=== PATIENT | male | born 1955 | race Caucasian/White ===

== ENCOUNTER 2016-03-19 10:44 | Inpatient (IN) | payer OTHER ==
[~2016-03-19] VITALS: Ht 188 cm; Wt 104.1 kg
[2016-03-19 11:07] VITALS: BP 148/80; PULSE 91; RESP 22; TEMP 101.4; O2SAT 94; O2SAT 99
[2016-03-19] MEDS ORDERED: DIVA250T3 PO (11:09)
[2016-03-19] MEDS ORDERED: ASPI81CH CHEW (11:09)
[2016-03-19] MEDS ORDERED: SERT25TA83 PO (11:09)
[2016-03-19] MEDS ORDERED: PRAZ1CAP PO (11:09)
[2016-03-19] MEDS ORDERED: SODIUM CHLOR 0.9% 1000 ML INJ 1,000 ML IV SCH (11:10)
[2016-03-19] MEDS ORDERED: ACETAMINOPHEN 325 MG TAB PO ONE (11:15)
[2016-03-19 11:45] LABS: AUTOMATED NEUTROPHIL # 16.9 TH/MM3 (1.8-7.7); BASOPHIL # 0.1 TH/MM3 (0-0.2); BASOPHIL % 0.3 % (0.0-2.0); EOSINOPHIL % 0.1 % (0.0-4.0); HEMATOCRIT 42.5 % (39.0-51.0); LYMPH % 6.8 % (9.0-44.0); LYMPHOCYTE # 1.4 TH/MM3 (1.0-4.8); MEAN CELL VOLUME 98.2 FL (80.0-100.0); MEAN CORPUSCULAR HEMOGLOBIN 33.9 PG (27.0-34.0); MEAN CORPUSCULAR HGB CONC 34.5 % (32.0-36.0); MONO % 11.6 % (0.0-8.0); NEUT % 81.2 % (16.0-70.0); PLATELET COUNT 240 TH/MM3 (150-450); RED BLOOD COUNT 4.33 MIL/MM3 (4.50-5.90); RED CELL DISTRIBUTION WIDTH 14.3 % (11.6-17.2); WHITE BLOOD COUNT 20.9 TH/MM3 (4.0-11.0)
[2016-03-19 11:48] LABS: HEMO FLAGS AUTO DIFF
--- NOTE | 2016-03-19 11:53 | PD ---
HPI Chief Complaint: Fever Time Seen by Provider: 11:47 Travel History International Travel<30 days: No Contact w/Intl Traveler<30days: No Traveled to known affect area: No History of Present Illness HPI Patient comes in for the emergency department family reports he has been seeing vampires. Patient reports he started seeing the vampires at his house yesterday around noon. Patient states he'll shotguns one vampires head. Patient states when patient lays on the vampires it disappeared. Patient states he last saw them this morning before he left his house. He states vampires were not aggressive. Patient denies any chest pain, shortness of breath, nausea, vomiting, bowel pain, or fevers. Patient states that he has been bit by rats over the past 3 weeks. Patient states that he buys the rats to feed his snakes. Patient reports his tetanus shot is up-to-date. Patient reports the last bite was approximately 2 weeks ago he was treated for this. [facility] Past Medical History Depression: Yes Past Surgical History Other Surgery: Yes (LEFT ANKLE) Social History Alcohol Use: No Tobacco Use: No Allergies-Medications (Allergen,Severity, Reaction): Coded Allergies: Penicillin (Verified Allergy, Severe, 03/19/16) SWELLING Reported Meds & Prescriptions Reported Meds & Active Scripts Active Reported Divalproex ER (Divalproex Sodium) 250 Mg Jackson Unknown Dose PO DAILY Prazosin (Prazosin HCl) 1 Mg Cap Unknown Dose PO BID Sertraline (Sertraline HCl) 25 Mg Tab Unknown Dose PO DAILY Aspirin 81 Mg Chew Unknown Dose CHEW DAILY Review of Systems Except as stated in HPI: all other systems reviewed are Neg Physical Exam Narrative GENERAL: Well-developed, overly nourished, in no acute distress, and non-ill appearing. SKIN: Warm and dry. HEAD: Atraumatic. Normocephalic. EYES: Pupils equal and round. EOMI. No scleral icterus. No injection or drainage. ENT: No nasal bleeding or discharge. Mucous membranes pink and moist. NECK: Trachea midline. Supple. No nuclear rigidity. CARDIOVASCULAR: Regular rate and rhythm. No murmur appreciated. RESPIRATORY: No accessory muscle use. No respiratory distress. Clear to auscultation. Breath sounds equal bilaterally. GASTROINTESTINAL: Abdomen soft, non-tender, nondistended. Hepatic and splenic margins not palpable. Normal bowel sounds 4. No pulsatile mass. MUSCULOSKELETAL: No obvious deformities. No clubbing. No cyanosis. No edema. Full range of motion. NEUROLOGICAL: Awake and alert. No obvious cranial nerve deficits. Motor grossly within normal limits. Normal speech. PSYCHIATRIC: Appropriate mood and affect. Data Data Last Documented VS Vital Signs Date Time Temp Pulse Resp B/P Pulse Ox O2 Delivery O2 Flow Rate FiO2 03/19/16 12:28 99.1 81 16 98 Nasal Cannula 2 03/19/16 11:07 148/80 Orders Complete Blood Count With Diff (03/19/16 11:11) Comprehensive Metabolic Panel (03/19/16 11:11) Iv Access Insert/Monitor (03/19/16 11:11) Oxygen Administration (03/19/16 11:11) Oximetry (03/19/16 11:11) Blood Glucose (03/19/16 11:11) Electrocardiogram (03/19/16 11:10) Lactic Acid Sepsis Protocol (03/19/16 11:10) Lipase (03/19/16 11:10) Urinalysis - C+S If Indicated (03/19/16 11:10) Blood Culture (03/19/16 11:10) Chest, Single Ap (03/19/16 11:10) Acetaminophen (Tylenol) (03/19/16 11:15) Alcohol (Ethanol) (03/19/16 11:10) Ammonia (03/19/16 11:10) Drug Screen, Random Urine (03/19/16 11:10) Sodium Chlor 0.9% 1000 Ml Inj (Ns 1000 M (03/19/16 11:10) Influenzae A/B Antigen (03/19/16 11:31) Valproic Acid (Depakene) (03/19/16 11:18) Sodium Chlor 0.9% 1000 Ml Inj (Ns 1000 M (03/19/16 12:30) Vancomycin Inj (Vancomycin Inj) (03/19/16 12:32) Piperacil-Tazo 4.5 Gm Premix (Zosyn 4.5 (03/19/16 12:32) Ceftriaxone Inj (Rocephin Inj) (03/19/16 13:00) Admit Order (Ed Use Only) (03/19/16 12:51) Labs Laboratory Tests Test 03/19/16 11:18 White Blood Count 20.9 TH/MM3 Red Blood Count 4.33 MIL/MM3 Hemoglobin 14.7 GM/DL Hematocrit 42.5 % Mean Corpuscular Volume 98.2 FL Mean Corpuscular Hemoglobin 33.9 PG Mean Corpuscular Hemoglobin 34.5 % Concent Red Cell Distribution Width 14.3 % Platelet Count 240 TH/MM3 Mean Platelet Volume 9.1 FL Neutrophils (%) (Auto) 81.2 % Lymphocytes (%) (Auto) 6.8 % Monocytes (%) (Auto) 11.6 % Eosinophils (%) (Auto) 0.1 % Basophils (%) (Auto) 0.3 % Neutrophils # (Auto) 16.9 TH/MM3 Lymphocytes # (Auto) 1.4 TH/MM3 Monocytes # (Auto) 2.4 TH/MM3 Eosinophils # (Auto) 0.0 TH/MM3 Basophils # (Auto) 0.1 TH/MM3 CBC Comment AUTO DIFF Differential Comment AUTO DIFF CONFIRMED Sodium Level 139 MEQ/L Potassium Level 3.9 MEQ/L Chloride Level 102 MEQ/L Carbon Dioxide Level 26.4 MEQ/L Anion Gap 11 MEQ/L Blood Urea Nitrogen 17 MG/DL Creatinine 1.03 MG/DL Estimat Glomerular Filtration 74 ML/MIN Rate Random Glucose 126 MG/DL Lactic Acid Level 0.9 mmol/L Calcium Level 8.4 MG/DL Total Bilirubin 0.9 MG/DL Aspartate Amino Transf 81 U/L (AST/SGOT) Alanine Aminotransferase 73 U/L (ALT/SGPT) Alkaline Phosphatase 96 U/L Ammonia 13 MCMOL/L Total Protein 6.5 GM/DL Albumin 2.8 GM/DL Lipase 122 U/L Valproic Acid (Depakene) Level 4 MCG/ML Ethyl Alcohol Level LESS THAN 3 MG/DL MDM Medical Decision Making Medical Screen Exam Complete: Yes Emergency Medical Condition: Yes Interpretation(s) EKG reviewed by Dr. Ordonez, shows normal sinus rhythm with ventricular rate of 88. No STEMI. Differential Diagnosis Sepsis, pneumonia, bacteremia, UTI, delirium, acute psychosis, drug-induced psychosis, other Narrative Course Patient was seen and examined. Initial laboratory and radiological studies were obtained and reviewed with UA currently pending. Discussed patient with Dr. Strong, who saw and evaluated patient and recommends having the patient admitted for further treatment and evaluation. Discussed all findings and plan care of patient is agreeable for admission. All questions were answered. Sepsis Criteria SIRS Criteria (2 or more): Temp > 100.9 or < 96.8, Heart rate over 90, WBC > 75526, < 4000 or > 10% bands Criteria Outcome: Meets SIRS criteria Physician Communication Physician Communication [id number] Summers was called was agreeable to admit the patient for Dr. Mcmahon. Diagnosis Primary Impression: SIRS (systemic inflammatory response syndrome) Additional Impressions: Fever of undetermined origin Delirium Admitting Information Admitting Physician Requests: Admit Condition: Stable Aj Lara Mar 19, 2016 11:53
[2016-03-19 12:21] LABS: ALT (GPT) 73 U/L (12-78); ANION GAP 11 MEQ/L (5-15); AST (GOT) 81 U/L (15-37); BICARBONATE 26.4 MEQ/L (21.0-32.0); BLOOD UREA NITROGEN 17 MG/DL (7-18); CHLORIDE 102 MEQ/L (98-107); GLOMERULAR FILTRATION RATE 74 ML/MIN (>89); POTASSIUM 3.9 MEQ/L (3.5-5.1); SODIUM (NA) 139 MEQ/L (136-145)
[2016-03-19 12:25] LABS: SCAN/DIFF AUTO DIFF CONFIRMED
[2016-03-19 12:26] LABS: ALKALINE PHOSPHATASE 96 U/L (45-117); TOTAL BILIRUBIN ADULT 0.9 MG/DL (0.2-1.0)
[2016-03-19 12:28] VITALS: PULSE 81; RESP 16; TEMP 99.1; O2SAT 98
--- NOTE | 2016-03-19 12:28 | RADRPT ---
EXAM DATE/TIME: 03/19/2016 12:09 [facility] COMPARISON: No previous studies available for comparison. INDICATIONS : Fever, cough, congestion, shortness of breath, syncope after getting bit by a rat two days ago. MEDICAL HISTORY : None. SURGICAL HISTORY : None. ENCOUNTER: Initial ACUITY: 2 days PAIN SCORE: 0/10 LOCATION: Bilateral chest FINDINGS: Portable AP view of the chest demonstrates a normal-sized cardiac silhouette. No effusion, consolidat ion, or pneumothorax is visualized. The bones and soft tissues demonstrate no acute abnormality. CONCLUSION: No acute cardiopulmonary abnormality is identified. Crispin Atwood MD on March 19, 2016 at 12:26 Board Certified Radiologist. This report was verified electronically.
[2016-03-19] MEDS ORDERED: SODIUM CHLOR 0.9% 1000 ML INJ 1,000 ML IV ONE (12:30)
[2016-03-19] MEDS ORDERED: PIPERACIL-TAZO 4.5 GM PREMIX 100 ML IV STA (12:32)
[2016-03-19] MEDS ORDERED: VANCOMYCIN INJ 1,000 MG in SODIUM CHLOR 0.9% 250 ML INJ 250 ML IV STA (12:32)
[2016-03-19] MEDS ORDERED: cefTRIAXone INJ 2,000 MG in SODIUM CHLORIDE 0.9% INJ 100 ML IV ONE (13:00)
--- NOTE | 2016-03-19 13:01 | HHI.HP ---
[facility] Service Family Medicine Primary Care Physician [facility] Admission Diagnosis SIRS, fever, delirium Diagnoses: International Travel<30 Days: No Contact w/Intl Traveler<30days: No Known Affected Area: No History of Present Illness Patient is a 60-year-old male with PMH significant for HTN, HLD, and bipolar who presented here today due to hallucinations. On 03/02/16, pt reports getting bit by a rat on his right left thumb that he purchased for his snake. After that , he developed sweat/chills and vomiting for 3days. This was then followed by 3days of non bloody diarrhea which has now resolved. He reports cleaning the area with hydrogen peroxide and antibacterial soaps. Since then patient reports seeing vampires in his house. He is now sure if he let these people in his house. Describes the vampires as coming in "episodes" in which there are groups of adult and children vampires as well as [place] children. These people are not telling him to do anything. Denies a prior history of hallucinations or requiring hospitalization for his bipolar. Denies prior episodes of hallucinations. He does not believe that these visions are hallucinations currently. Currently not seeing any vampires in the ED room. Denies any chest pain, SOB, abdominal pain, diarrhea. Does endorse a history of syncope that occurs whenever he goes from a sitting to a standing position. Endorses that he gets blurry vision in relation to these episodes. Review of Systems Constitutional: COMPLAINS OF: Fever, Chills, DENIES: Diaphoretic episodes, Dizziness Eyes: COMPLAINS OF: Blurred vision Respiratory: DENIES: Cough, Shortness of breath Cardiovascular: COMPLAINS OF: Syncope, DENIES: Chest pain, Palpitations, Dyspnea on Exertion Gastrointestinal: DENIES: Abdominal pain, Diarrhea, Nausea, Vomiting Musculoskeletal: DENIES: Back pain Integumentary: DENIES: Rash Neurologic: DENIES: Headache, Seizures Psychiatric: COMPLAINS OF: Hallucinations, DENIES: Suicidal Ideation, Homicidal Ideation Past Family Social History Past Medical History Osteoarthritis HTN HLD Depression Bipolar BPH Past Surgical History left ankle x2 with hardware removed hernia repair on left possible surgery from branch going into chest cavity??? Reported Medications Attempted to contact pharmacy to verify dosing of medications but have not been able to Reported Meds & Active Scripts Active Reported Divalproex ER (Divalproex Sodium) 250 Mg Jackson Unknown Dose PO DAILY Prazosin (Prazosin HCl) 1 Mg Cap Unknown Dose PO BID Sertraline (Sertraline HCl) 25 Mg Tab Unknown Dose PO DAILY Aspirin 81 Mg Chew Unknown Dose CHEW DAILY Allergies: Coded Allergies: Penicillin (Verified Allergy, Severe, 03/19/16) SWELLING Family History Mother: dementia Father: of lung cancer? Social History Lives with by himself Alcohol: 3-4 12oz beers on the weekends. Will get the shakes when not drinking. No history of seizure Tobacco: 1 cigar periodically Illicit: marijuana a long time ago. None recently. Otherwise denies illicit drug use Does not want me to contact brother for more medical information Physical Exam Vital Signs Vital Signs Date Time Temp Pulse Resp B/P Pulse Ox O2 Delivery O2 Flow Rate FiO2 03/19/16 12:28 99.1 81 16 98 Nasal Cannula 2 03/19/16 11:31 97 Nasal Cannula 2 03/19/16 11:07 101.4 91 22 148/80 94 Physical Exam GENERAL: This is a well-nourished, well-developed patient, in no apparent distress. SKIN: Healing lesion on right knuckle. EYES: Pupils equal round and reactive. Extraocular motions intact. No scleral icterus. No injection or drainage. ENT: Nose without bleeding, purulent drainage. Throat without erythema, tonsillar hypertrophy or exudate. Uvula midline. Airway patent. NECK: No lymphadenopathy. Supple, nontender, no meningeal signs. CARDIOVASCULAR: Regular rate and rhythm without murmurs, gallops, or rubs. RESPIRATORY: Clear to auscultation. Breath sounds equal bilaterally. No wheezes , rales, or rhonchi. GASTROINTESTINAL: Abdomen soft, non-tender, nondistended. No hepato-splenomegaly , or palpable masses. No guarding. MUSCULOSKELETAL: Extremities without clubbing, cyanosis, or edema. No calf tenderness. NEUROLOGICAL: Awake and alert. Cranial nerves II through XII intact. Motor and sensory grossly within normal limits. Normal speech. Laboratory Laboratory Tests Test 03/19/16 11:18 White Blood Count 20.9 Red Blood Count 4.33 Hemoglobin 14.7 Hematocrit 42.5 Mean Corpuscular Volume 98.2 Mean Corpuscular Hemoglobin 33.9 Mean Corpuscular Hemoglobin 34.5 Concent Red Cell Distribution Width 14.3 Platelet Count 240 Mean Platelet Volume 9.1 Neutrophils (%) (Auto) 81.2 Lymphocytes (%) (Auto) 6.8 Monocytes (%) (Auto) 11.6 Eosinophils (%) (Auto) 0.1 Basophils (%) (Auto) 0.3 Neutrophils # (Auto) 16.9 Lymphocytes # (Auto) 1.4 Monocytes # (Auto) 2.4 Eosinophils # (Auto) 0.0 Basophils # (Auto) 0.1 CBC Comment AUTO DIFF Differential Comment AUTO DIFF CONFIRMED Sodium Level 139 Potassium Level 3.9 Chloride Level 102 Carbon Dioxide Level 26.4 Anion Gap 11 Blood Urea Nitrogen 17 Creatinine 1.03 Estimat Glomerular Filtration 74 Rate Random Glucose 126 Lactic Acid Level 0.9 Calcium Level 8.4 Total Bilirubin 0.9 Aspartate Amino Transf 81 (AST/SGOT) Alanine Aminotransferase 73 (ALT/SGPT) Alkaline Phosphatase 96 Ammonia 13 Total Protein 6.5 Albumin 2.8 Lipase 122 Valproic Acid (Depakene) Level 4 Ethyl Alcohol Level LESS THAN 3 Date/Time Procedure Status Source Growth 03/19/16 11:38 Influenza Types A,B Antigen (SADIE) - Final Complete Nasal Washing NEGATIVE FOR FLU A AND B ANTIGEN.... 03/19/16 11:18 Aerobic Blood Culture Received Blood Peripheral Pending 03/19/16 11:18 Anaerobic Blood Culture Received Blood Peripheral Pending Result Diagram: 03/19/16 1118 03/19/16 1118 Imaging Last Impressions Chest X-Ray 03/19/16 1110 Signed Impressions: Service Date/Time: Saturday, March 19, 2016 12:09 - CONCLUSION: No acute cardiopulmonary abnormality is identified. Crispin Atwood MD Assessment and Plan Assessment and Plan 60-year-old male with PMH significant for HTN, HLD, bipolar. Admitted for SIRS and possible delirium. Code Status Full Discussed Condition With Dr. Ram and Dr. Mcmahon Problem List: (1) SIRS (systemic inflammatory response syndrome) Status: Acute Plan: Meets SIRS criteria based on fever and leukocytosis. History is also very poor as patient is hallucinating but I am unsure if this is due to underlying psychiatric illness versus delirium. There is a history of a rat bite a few weeks ago but site of bite does not look infected. Neurologically patient is intact. Etiology unclear at this time. Will cover with broad- spectrum antibiotics -EKG significant for sinus tachycardia -Leukocytosis present -No lactic acidosis -Ammonia unremarkable -TSH and free T4, UA, UDS pending -Blood cultures pending -Cardiac telemetry -will consider ID consult if symptoms do not improve Imaging: * Head CT negative * CXR: Unremarkable Medications: * Cefepime 2 g q12 (03/19- * Vancomycin (03/19 * Rocephin 1 in the ED (2) Delirium Status: Acute Plan: Etiology unclear, please see plan above -Placed on [facility] protocol as history is unclear (3) Bipolar 1 disorder Status: Acute Plan: Reports a history of bipolar but was unable to clarify medications -Valproic acid level low at 4 -Will hold home medication at this time and reevaluate in the morning -Consider psychiatric consultation (4) Syncope Status: Acute Plan: Reports a history of syncope this is related to orthostatic hypotension/ vasovagal as it occurs mostly when going from sitting to standing position. Head CT unremarkable -Orthostatic vital signs ordered -Cardiac telemetry (5) Nutrition, metabolism, and development symptoms Status: Acute Plan: Diet: Regular Electrolytes: Unremarkable Fluids: NS at 100 DVT prophylaxis: Lovenox GI prophylaxis: Not indicated Chronic conditions: * BPH: prazosin 1mg BID * HTN: Vasotec PRN Physician Certification 2 Midnight Certification Type: Admission for Inpatient Services Order for Inpatient Services The services are ordered in accordance with Medicare regulations or non- Medicare payer requirements, as applicable. In the case of services not specified as inpatient-only, they are appropriately provided as inpatient services in accordance with the 2-midnight benchmark. Estimated LOS (days): 2 days is the estimated time the patient will need to remain in the hospital, assuming treatment plan goals are met and no additional complications. Post-Hospital Plan: Not yet determined Skylar Carter MD R2 Mar 19, 2016 13:01
[2016-03-19] MEDS ORDERED: ACETAMINOPHEN 325 MG TAB PO PRN ×2 (14:00→17:30)
[2016-03-19] MEDS ORDERED: NALOXONE HCL 0.4 MG/ML AMP IV PRN ×2 (14:00→17:30)
[2016-03-19] MEDS ORDERED: SODIUM CHLORIDE 0.9% FLUSH 5 ML FLUSH FLUSH PRN (14:00)
[2016-03-19] MEDS ORDERED: LORazepam 1 MG TAB PO PRN (14:00)
[2016-03-19] MEDS ORDERED: ENALAPRILAT 1.25 MG/ML VIAL IV PRN (14:00)
[2016-03-19] MEDS ORDERED: FLUMAZENIL 0.5 MG/5 ML VIAL IV PUSH PRN (14:00)
[2016-03-19] MEDS ORDERED: LORazepam 2 MG/ML VIAL IV PUSH PRN ×4 (14:00)
[2016-03-19] MEDS ORDERED: LORazepam 2 MG TAB PO PRN (14:00)
[2016-03-19] MEDS ORDERED: ONDANSETRON HCL 4 MG/2 ML VIAL IVP PRN (14:00)
[2016-03-19 14:25] VITALS: BP 130/78; PULSE 79; RESP 16; O2SAT 100
[2016-03-19] MEDS ORDERED: Vancomycin Consult Pharmacy 1 EA OTHER SCH (14:30)
--- NOTE | 2016-03-19 14:31 | RADRPT ---
EXAM DATE/TIME: 03/19/2016 14:16 [facility] COMPARISON: No previous studies available for comparison. INDICATIONS : Hallucinations today,Altered mental status RADIATION DOSE: 56.35 CTDIvol (mGy) MEDICAL HISTORY : None SURGICAL HISTORY : None. ENCOUNTER: Initial ACUITY: 1 day PAIN SCALE: 0/10 LOCATION: cranial TECHNIQUE: Multiple contiguous axial images were obtained of the head. Using automated exposure control and adj ustment of the mA and/or kV according to patient size, radiation dose was kept as low as reasonably a chievable to obtain optimal diagnostic quality images. FINDINGS: CEREBRUM: The ventricles are normal for age. No evidence of midline shift, mass lesion, hemorrhage or acute in farction. No extra-axial fluid collections are seen. POSTERIOR FOSSA: The cerebellum and brainstem are intact. The 4th ventricle is midline. The cerebellopontine angle i s unremarkable. EXTRACRANIAL: The visualized portion of the orbits is intact. SKULL: The calvaria is intact. No evidence of skull fracture. CONCLUSION: 1. No evidence of acute intracranial pathology. No masses are identified. Blake Moreno MD on March 19, 2016 at 14:29 Board Certified Radiologist. This report was verified electronically.
[2016-03-19] MEDS ORDERED: ENOXAPARIN SODIUM 40 MG/0.4 ML SYRINGE SQ SCH (15:00)
[2016-03-19] MEDS: SODIUM CHLOR 0.9% 1000 ML INJ 1,000 ML IV SCH ×2 (15:59→23:47)
[2016-03-19 16:01] VITALS: BP 123/64; PULSE 73; RESP 19; O2SAT 97
--- NOTE | 2016-03-19 16:36 | EKG ---
Date Performed: 03/19/2016 Time Performed: 11:23:55 PTAGE: 60 years EKG: Sinus rhythm POSSIBLE LEFT ATRIAL ENLARGEMENT BORDERLINE LEFT AXIS DEVIATION BORDERLINE ECG NO PREVIOUS TRACING DOCTOR: Joya Singh Interpretating Date/Time 03/19/2016 16:34:09
[2016-03-19 17:29] LABS: FREE T4 1.61 NG/DL (0.76-1.46)
[2016-03-19] MEDS ORDERED: ACETAMINOPHEN/HYDROcodone 325 MG/5 MG TAB PO PRN (17:30)
--- NOTE | 2016-03-19 17:55 | HHI.FPPN ---
Subjective Remarks Attending note: Patient seen and examined. 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 A precise chronologic history was difficult to obtain, however, patient relates that 5 days ago he was bitten on the left and right hand by a rat which was intended to be fed to some snakes that her pet's patient and his girlfriend. At some point he began having constant vomiting, felt dehydrated and was sweating. Because blurred vision and being unsteady on his feet. The duration was 2-3 days. He then felt like he was coming back to life "with some diarrhea that was resolving, however, on 03/18/16, the patient relates that he went to [facility] and was diagnosed with "infection". Given what he thinks was an antibiotic, something for inflammation and something relaxing muscles. Up until the last 24 hours patient relates visual hallucination in his that he describes as [place] gross. There was no auditory component, he can try to flashlight on if the room was dark in the visions would disappear. Patient does have a history of bipolar illness and [facility] team. Has history of hypertension and hyperlipidemia. Notable white blood cell count of 20,900 on presentation, the patient has received vancomycin and cefepime after cultures. A urinalysis was not able to be obtained. He subsequently states that he has given specimen. Please refer to resident history and physical for discussion of details regarding past medical history, family history, social history review of systems. Objective Vitals Vital Signs Date Time Temp Pulse Resp B/P Pulse Ox O2 Delivery O2 Flow Rate FiO2 03/19/16 16:01 73 19 123/64 97 03/19/16 14:25 79 16 130/78 100 03/19/16 12:28 99.1 81 16 98 Nasal Cannula 2 03/19/16 11:31 97 Nasal Cannula 2 03/19/16 11:07 101.4 91 22 148/80 94 Result Diagram: 03/19/16 1118 03/19/16 1118 Objective Remarks Vital signs noted. Temperature currently 99.1. Oxygen saturation stable. Gen. appearance middle-age gentleman who is pleasant conversation, pressed to speak regarding the history of the visual hallucinations. HEENT: Oropharynx no localized lesions. Neck: No adenopathy Lungs: Clear to auscultation. Neck: No unusual murmurs or S3, rhythm is regular. Abdomen: Active bowel sounds soft no organomegaly, no palpable masses, does have some guarding in the right upper abdomen and right lower rib cage anteriorly. Extremities: No rashes evident, feet are warm and dry, intact pedal pulses. Attention to the areas described as being from the rat bites. The left thumb tip has no interest points, the right first MCP has very superficial abrasion type lesion, does not appear to be a puncture wound. Neurologic: Patient is essentially went into to time place and person. A/P Assessment and Plan Clinical assessment patient seen and examined. Case reviewed and discussed with resident team. Agree with the plan of care as discussed with physician and documented in the resident note. 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 Patient may have received some antibiotics from prior visit to an emergency room in [place]. Cultures are pending, empiric antibiotics have been started, etiology of the infection is not clear at this time. Doubt that it is related to the murine exposure Problem List: (1) SIRS (systemic inflammatory response syndrome) Status: Acute Plan: Meets SIRS criteria based on fever and leukocytosis. History is also very poor as patient is hallucinating but I am unsure if this is due to underlying psychiatric illness versus delirium. There is a history of a rat bite a few weeks ago but site of bite does not look infected. Neurologically patient is intact. Etiology unclear at this time. Will cover with broad- spectrum antibiotics -EKG significant for sinus tachycardia -Leukocytosis present -No lactic acidosis -Ammonia unremarkable -TSH and free T4, UA, UDS pending -Blood cultures pending -Cardiac telemetry -will consider ID consult if symptoms do not improve Imaging: * Head CT negative * CXR: Unremarkable Medications: * Cefepime 2 g q12 (03/19- * Vancomycin (03/19 * Rocephin 1 in the ED (2) Delirium Status: Acute Plan: Etiology unclear, please see plan above -Placed on [facility] protocol as history is unclear (3) Bipolar 1 disorder Status: Acute Plan: Reports a history of bipolar but was unable to clarify medications -Valproic acid level low at 4 -Will hold home medication at this time and reevaluate in the morning -Consider psychiatric consultation (4) Syncope Status: Acute Plan: Reports a history of syncope this is related to orthostatic hypotension/ vasovagal as it occurs mostly when going from sitting to standing position. Head CT unremarkable -Orthostatic vital signs ordered -Cardiac telemetry (5) Nutrition, metabolism, and development symptoms Status: Acute Plan: Diet: Regular Electrolytes: Unremarkable Fluids: NS at 100 DVT prophylaxis: Lovenox GI prophylaxis: Not indicated Chronic conditions: * BPH: prazosin 1mg BID * HTN: Vasotec PRN Hubert Mcmahon MD Mar 19, 2016 17:55
[2016-03-19 20:00] VITALS: BP 150/87; PULSE 78; RESP 18; TEMP 99.2; O2SAT 9
[2016-03-19] MEDS: VANCOMYCIN INJ 1,500 MG in SODIUM CHLORID 0.9% 500 ML INJ 500 ML IV SCH (21:00)
[2016-03-19] MEDS: ACETAMINOPHEN/HYDROcodone 325 MG/7.5 MG TAB PO PRN (21:23)
[2016-03-19] MEDS: PRAZOSIN HCL 1 MG CAP PO SCH (21:23)
[2016-03-19] MEDS: CEFEPIME INJ 2,000 MG in SODIUM CHLORIDE 0.9% INJ 100 ML IV SCH (21:24)
[2016-03-19] MEDS: SODIUM CHLORIDE 0.9% FLUSH 5 ML FLUSH FLUSH SCH (21:25)
[2016-03-19] MEDS ORDERED: VANCOMYCIN INJ 1,500 MG in SODIUM CHLORID 0.9% 500 ML INJ 500 ML IV SCH (23:00)
[2016-03-20] VITALS: BP 128/62; PULSE 86; RESP 18; TEMP 98.7; O2SAT 96
[2016-03-20 00:30] LABS: APTT (PATIENT) 39.2 SEC (24.3-30.1); INTERNATIONAL NORMALIZED RATIO 1.2 RATIO; PROTHROMBIN TIME - PATIENT 13.1 SEC (9.8-11.6)
[2016-03-20 04:00] VITALS: BP 142/81; PULSE 82; RESP 18; TEMP 98.8; O2SAT 97
[2016-03-20 06:00] LABS: BACTERIA, URINE RARE /hpf; BLOOD, URINE NEG (NEG); COMMENT (UR) CATH-CULTURE IND; CULTURE IF INDICATED CATH CULTURE IND; GLUCOSE,URINE NEG (NEG); KETONE, URINE NEG (NEG); MUCUS URINE MANY /lpf (OCC); NITRITE,URINE NEG (NEG); PH, URINE 5.5 (5.0-8.5); SQUAMOUS EPITHELIAL CELL URINE <1 /hpf (0-5); URINE COLOR DARK-YELLOW (YELLW/STRAW)
[2016-03-20] MEDS: ACETAMINOPHEN/HYDROcodone 325 MG/7.5 MG TAB PO PRN (06:42)
[2016-03-20 08:00] VITALS: BP 144/75; PULSE 85; RESP 22; TEMP 99.2; O2SAT 95
[2016-03-20] MEDS: PRAZOSIN HCL 1 MG CAP PO SCH (08:09)
[2016-03-20] MEDS: CEFEPIME INJ 2,000 MG in SODIUM CHLORIDE 0.9% INJ 100 ML IV SCH (08:09)
[2016-03-20] MEDS: VANCOMYCIN INJ 1,500 MG in SODIUM CHLORID 0.9% 500 ML INJ 500 ML IV SCH (08:15)
[2016-03-20] MEDS: SODIUM CHLOR 0.9% 1000 ML INJ 1,000 ML IV SCH (08:16)
[2016-03-20] MEDS: SODIUM CHLORIDE 0.9% FLUSH 5 ML FLUSH FLUSH SCH (08:25)
[2016-03-20] MEDS ORDERED: ASPIRIN 81 MG CHEW TAB CHEW SCH (09:00)
[2016-03-20 09:47] LABS: AUTOMATED NEUTROPHIL # 14.7 TH/MM3 (1.8-7.7); BASOPHIL # 0.1 TH/MM3 (0-0.2); BASOPHIL % 0.4 % (0.0-2.0); EOSINOPHIL # 0.1 TH/MM3 (0-0.4); EOSINOPHIL % 0.4 % (0.0-4.0); HEMATOCRIT 40.7 % (39.0-51.0); LYMPH % 8.6 % (9.0-44.0); LYMPHOCYTE # 1.6 TH/MM3 (1.0-4.8); MEAN CELL VOLUME 99.2 FL (80.0-100.0); MEAN CORPUSCULAR HEMOGLOBIN 33.7 PG (27.0-34.0); MONO % 12.6 % (0.0-8.0); PLATELET COUNT 276 TH/MM3 (150-450); RED BLOOD COUNT 4.11 MIL/MM3 (4.50-5.90); RED CELL DISTRIBUTION WIDTH 14.4 % (11.6-17.2); WHITE BLOOD COUNT 18.9 TH/MM3 (4.0-11.0)
[2016-03-20 09:55] LABS: HEMO FLAGS AUTO DIFF
[2016-03-20 10:28] LABS: EOSINOPHILS 1 % (0-4); NEUTROPHIL # MANUAL DIFF 14.2 TH/MM3 (1.8-7.7); PLATELET ESTIMATE SMEAR NORMAL (NORMAL); PLATELET MORPHOLOGY NORMAL (NORMAL); POLYS (SEG NEUTROPHILS) 75 % (16-70); SCAN/DIFF FINAL DIFF MANUAL; WBC DIFF SAMPLE 100
[2016-03-20 10:41] LABS: BICARBONATE 20.3 MEQ/L (21.0-32.0); HDL CHOLESTEROL 21.4 MG/DL (40.0-60.0); POTASSIUM 3.7 MEQ/L (3.5-5.1)
--- NOTE | 2016-03-20 14:05 | PD.AMA ---
Against Medical Advice Note Diagnosis: (1) Bipolar 1 disorder Discharge Disposition: Against Medical Advice Pt Condition on Discharge: Stable AMA Statement Patient Mehrdad Leon has decided to leave the hospital against medical advice. This patient has the capacity to refuse care and understands the risks of leaving, including permanent disability and/or , and has had an opportunity to ask questions about his condition. The patient has been informed that he may return for care at any time. The patient was not suicidal nor homicidal. Patient was seen and examined this morning and counseled extensively about his medical conditions as well as the medications he had or is taking for these medical conditions. The patient later became belligerent and decided to leave against medical advice. Yonas Ram MD R1 Mar 20, 2016 14:05
--- NOTE | 2016-03-20 16:22 | HHI.FPPN ---
Subjective Remarks Delay documentation. Patient seen in the a.m. No acute events overnight. Vital signs unremarkable. This morning patient states that he feels better. Denies any current hallucinations but does believe there are vampire still at his home. Denies any subjective fevers and overall feels better and is able to think more clearly. Denies any fatigue, chest pain, SOB, abdominal pain. He was oriented to year and current president but does not know month or day. (Skylar Carter MD R2) Remarks Patient seen and examined. Case reviewed and discussed with resident team. Agree with plan of care as discussed with physician and documented in the resident note (Hubert Mcmahon MD) Objective Vitals Vital Signs Date Time Temp Pulse Resp B/P Pulse Ox O2 Delivery O2 Flow Rate FiO2 03/20/16 08:00 99.2 85 22 144/75 95 03/20/16 04:00 98.8 82 18 142/81 97 03/20/16 00:00 98.7 86 18 128/62 96 03/19/16 20:00 99.2 78 18 150/87 9 I/O 03/19/16 03/19/16 03/19/16 03/20/16 03/20/16 03/20/16 07:00 15:00 23:00 07:00 15:00 23:00 Intake Total 480 ml Balance 480 ml Intake Oral 480 ml # Voids 1 # Bowel Movements 0 (Skylar Carter MD R2) Result Diagram: 03/20/16 0803/20/16 0826 Objective Remarks GEN: Well-developed, well-nourished patient. No acute distress. Sitting comfortably in bed. CV: Regular rate and rhythm without obvious murmurs LUNGS: Clear to auscultation bilaterally. Normal respiratory effort. No wheezes , rales, rhonchi. GI: Soft, nontender, nondistended. No palpable masses. NEURO/PSYCH: Awake, alert. Oriented to year and current president but not to month or day. Appropriate speech and dialogue (Skylar Carter MD R2) A/P Assessment and Plan 60-year-old male with PMH significant for HTN, HLD, bipolar. Admitted for SIRS and possible delirium. Discharge Planning 1-2 days pending psych evaluation sdw Dr. Ram and Dr. Mcmahon (Skylar Carter MD R2) Assessment and Plan Patient seen and examined. Case reviewed and discussed with resident team. Agree with plan of care as discussed with physician and documented in the resident note (Hubert Mcmahon MD) Problem List: (1) SIRS (systemic inflammatory response syndrome) Status: Resolved Plan: Meets SIRS criteria based on fever and leukocytosis. History is also very poor as patient is hallucinating but I am unsure if this is due to underlying psychiatric illness versus delirium. There is a history of a rat bite a few weeks ago but site of bite does not look infected. Neurologically patient is intact. Etiology unclear at this time. Will cover with broad- spectrum antibiotics -Leukocytosis present but mildly improved -No lactic acidosis -Ammonia, lactic acid, TSH/FT4 unremarkable -UDS ordered but not obtained -Blood cultures negative 1 day -Cardiac telemetry -will consider ID consult if symptoms do not improve Imaging: * Head CT negative * CXR: Unremarkable Medications: * Cefepime 2 g q12 (03/19- * Vancomycin (03/19 * Rocephin 1 in the ED (2) Delirium Status: Acute Plan: Etiology unclear, please see plan above -Placed on [facility] protocol as history is unclear (3) Bipolar 1 disorder Status: Chronic Plan: Reports a history of bipolar but was unable to clarify medications -Valproic acid level low at 4 -Reports taking Sertraline 200mg daily and Divalproex 600mg daily? -Will consult psychiatric (4) Syncope Status: Acute Plan: Reports a history of syncope that is related to orthostatic hypotension/ vasovagal as it occurs mostly when going from sitting to standing position. Head CT unremarkable -Orthostatic vital signs ordered -Cardiac telemetry (5) Nutrition, metabolism, and development symptoms Status: Acute Plan: Diet: Regular Electrolytes: Unremarkable Fluids: NS at 100 DVT prophylaxis: Lovenox GI prophylaxis: Not indicated Chronic conditions: * BPH: prazosin 1mg BID * HTN: Vasotec PRN (Skylar Carter MD R2) Skylar Carter MD R2 Mar 20, 2016 16:22 Hubert Mcmahon MD Mar 21, 2016 10:46
--- NOTE | 2016-03-20 16:28 | PD.AMA ---
Against Medical Advice Note Discharge Disposition: Against Medical Advice Pt Condition on Discharge: Stable AMA Statement Shortly after being evaluated by the medical team, received page stating that patient had signed out AMA and that his girlfriend was coming to pick him up. This patient has the capacity to refuse care and understands the risks of leaving, including permanent disability and/or , and has had an opportunity to ask questions about his condition. Will accept patient back if he is to return for care. dw Dr. Mcmahon and Skylar Aden MD R2 Mar 20, 2016 16:28
[2016-03-21] MEDS ORDERED: PHARMACY ORDERED LAB XX ONE (08:45)
[2016-03-21 11:20] LABS: AMPHETAMINE, URINE NEG (NEG); BARBITURATES, URINE NEG (NEG); COCAINE, URINE NEG (NEG)
[2016-03-21] MEDS ORDERED: LORazepam 2 MG/ML VIAL IM PRN (18:00)
[2016-03-21] MEDS ORDERED: LORazepam 1 MG TAB PO PRN (18:00)
[2016-03-21] MEDS ORDERED: MAGNESIUM HYDROXIDE SUSP 30 ML CUP PO PRN (18:00)
[2016-03-21] MEDS ORDERED: ALUMINUM/MAGNESIUM/SIMETH 30 ML CUP PO PRN (18:00)
[2016-03-21 20:25] VITALS: BP 154/84; PULSE 83; RESP 16; TEMP 98.6; O2SAT 96
[2016-03-21] MEDS: REMOVE OLD NICOTINE PATCH T-DERMAL SCH (21:00)
[2016-03-21 22:32] LABS: HEMOGLOBIN A1a 2.1 %; HEMOGLOBIN A1b 0.8 %; HEMOGLOBIN Ao 85.6 %; HEMOGLOBIN F 0.8 %; HEMOGLOBIN LA1C 1.8 %; HEMOGLOBIN P3 3.3 %
[2016-03-21 23:18] VITALS: BP 158/82; PULSE 79; RESP 15; TEMP 98.3; O2SAT 96
[2016-03-22 04:18] VITALS: BP 134/90; PULSE 67; RESP 16; TEMP 98.6; O2SAT 98
[2016-03-22 05:54] LABS: AUTOMATED NEUTROPHIL # 6.5 TH/MM3 (1.8-7.7); BASOPHIL # 0.1 TH/MM3 (0-0.2); BASOPHIL % 0.5 % (0.0-2.0); EOSINOPHIL # 0.2 TH/MM3 (0-0.4); EOSINOPHIL % 1.6 % (0.0-4.0); LYMPH % 22.3 % (9.0-44.0); LYMPHOCYTE # 2.3 TH/MM3 (1.0-4.8); MEAN CELL VOLUME 98.6 FL (80.0-100.0); MEAN CORPUSCULAR HEMOGLOBIN 34.5 PG (27.0-34.0); MONO % 13.9 % (0.0-8.0); NEUT % 61.7 % (16.0-70.0); PLATELET COUNT 270 TH/MM3 (150-450); RED BLOOD COUNT 3.65 MIL/MM3 (4.50-5.90); RED CELL DISTRIBUTION WIDTH 14.1 % (11.6-17.2); WHITE BLOOD COUNT 10.5 TH/MM3 (4.0-11.0)
[2016-03-22 05:59] LABS: HEMO FLAGS AUTO DIFF
[2016-03-22 06:06] LABS: APTT (PATIENT) 29.8 SEC (24.3-30.1); INTERNATIONAL NORMALIZED RATIO 1.1 RATIO; PROTHROMBIN TIME - PATIENT 12.1 SEC (9.8-11.6)
[2016-03-22 06:20] LABS: ALT (GPT) 154 U/L (12-78); ANION GAP 6 MEQ/L (5-15); AST (GOT) 149 U/L (15-37); BICARBONATE 25.7 MEQ/L (21.0-32.0); BLOOD UREA NITROGEN 14 MG/DL (7-18); CHLORIDE 109 MEQ/L (98-107); GLOMERULAR FILTRATION RATE 94 ML/MIN (>89); POTASSIUM 3.9 MEQ/L (3.5-5.1); SODIUM (NA) 141 MEQ/L (136-145)
[2016-03-22 06:25] LABS: ALKALINE PHOSPHATASE 79 U/L (45-117); HDL CHOLESTEROL 22.5 MG/DL (40.0-60.0); LDL CHOLESTEROL 94 MG/DL (0-99); TOTAL BILIRUBIN ADULT 0.6 MG/DL (0.2-1.0)
[2016-03-22 07:54] LABS: BANDS 3 % (0-6); EOSINOPHILS 1 % (0-4); METAMYELOCYTES 2 % (0-1); MYELOCYTES 1 % (0-0); NEUTROPHIL # MANUAL DIFF 8.2 TH/MM3 (1.8-7.7); POLYS (SEG NEUTROPHILS) 72 % (16-70); WBC DIFF SAMPLE 100
[2016-03-22 07:56] LABS: PLATELET ESTIMATE SMEAR NORMAL (NORMAL); PLATELET MORPHOLOGY NORMAL (NORMAL)
[2016-03-22 07:57] LABS: SCAN/DIFF FINAL DIFF MANUAL
[2016-03-22] MEDS: NICOTINE 21 MG/24 HR PATCH T-DERMAL SCH (09:00)
[2016-03-22] MEDS ORDERED: CEFEPIME 2000 MG/NS 100 ML IV SCH ×2 (10:00)
--- NOTE | 2016-03-22 10:28 | HHI.HP ---
Provisional Diagnosis Admission Date Mar 21, 2016 at 16:14 [place] I. Unspecified psychosis, r/o Schizoaffective disorder, r/o medical induced psychosis [place] II. Deferred Certification of Person's Competence To Provide Express and Informed Consent I have personally examined Mehrdad Leon , a person being served at [facility] on, Mar 22, 2016 10:21. Express and informed consent means consent voluntarily given in writing, by a competent person, after sufficient explanation and disclosure of the subject matter involved to enable the person to make a knowing and willful decision without any element of force, fraud, deceit, duress, or other form of constraint or coercion. This person is 18 years of age or older, is not now known to be incompetent to consent to treatment with a guardian advocate, and does not have a health care surrogate or proxy currently making medical treatment decisions. I have found this person to be one of the following: [] Competent to provide express and informed consent, as defined above, for voluntary admission to this facility and is competent to provide express and informed consent for treatment. He/she has the consistent capacity to make well reasoned, willful, and knowing decisions concerning his or her medical or mental health treatment. The person fully and consistently understands the purpose of the admission for examination/placement and is fully capable of personally exercising all rights assured under [place] [] Incompetent to provide express and informed consent to voluntary admission, and this is incompetent to provide express and informed consent to treatment. The person must be transferred to involuntary status and a petition for a guardian advocate filed with the Circuit Court. [X] Refusing to provide express and informed consent to voluntary admission but is competent to provide express and informed consent for treatment. The person must be discharged or transferred to involuntary status. Form shall be completed within 24 hours of a person's arrival at the receiving facility and filed in the clinical record of each person: 1. Admitted on a voluntary basis 2. Permitted to provide express and informed consent to his/her own treatment 3. Allowed to transfer from involuntary to voluntary status 4. Prior to permitting a person to consent to his or her own treatment after having been previously found incompetent to consent to treatment. History of Present Illness Capacity: Has Capacity HPI My assessment yesterday: "The patient is a 60-year-old man, domiciled alone in [place], [place] service [place], with a self-reported psychiatric history of bipolar disorder , no psychiatric hospitalizations, no previous suicide attempts, receiving outpatient psychiatric care in [place], he isn't Depakote 250 mg twice a day, and Zoloft 25 mg, past medical history significant for hypertension, bipolar disorder, BPH who left [facility] yesterday, currently admitted under the Crowell Act due to erratic behavior. "Patient was admitted due to sepsis, delirium, syncope. He is unable to explain why he left AMA. After leaving the hospital he was found experiencing hallucinations and responding to external stimuli. Patient was brought to the ED by police. Patient was also noted to have an open wound on his right elbow that was not previously documented. He is unable to account for how this injury occurred or how long it has been present. Patient is unable to answer questions directly and provides no additional relevant history."Patient was seen for psychiatric evaluation in the ER, patient explains that the reason he is in the hospital is because a rat bit him. He explains that he has been feeding his snakes at home and when he was giving a rat to the snakes one of the rats bit him. He also complains that there are several vampires hanging out of his house "in a need to protect myself , if they come close to my house I will shoot them", patient refuses to answer it he has a gun at home. He says that he has been seen vampires around him, "sometime inside my house, they couldn't even be here"for a long time now. Patient also reports auditory hallucination, voices telling him to fight against the vampires. He reports good mood, denies depressive symptoms, he denies anxiety. Patient is tangential and disorganized, but redirectable, he is oriented 3, he does not seem to be confused or delirium. No pressure speech , flight of ideas, are noted during this evaluation. Patient denies the use of illicit drugs, he also denies the use of alcohol. Patient explains that he has been "a psychiatric patient for a long time"and he sees a psychiatrist in [place], however he seems to have a hard time answering if he has been hospitalized and what medication his taking." Today 03/22/2016: Patient was seen for psychiatric evaluation, he seems to be comfortable in his bed, eating his breakfast, he is calm and cooperative, patient says that he feels much better than yesterday, he denies distress, he denies pain, he says that his nausea and vomiting is already cured, he endorses good mood, he explains that he is a little concerned "because nobody is taking care of my snakes at home", he clarifies that he has two snakes as pets. He denies suicidal and homicidal ideation, he denies visual and auditory hallucinations. He says that he is no seen vampires anymore "it happened yesterday I don't know why, is the first time that happened to me, I was also very confused", patient is fully oriented 3, no attention deficit, fluctuation of consciousness are present. No paranoia, delusions, aggressive behavior or agitation observed during visible. Review of Systems Other No significant changes since my assessment in 03/21/2016 Substance Abuse History Drugs/Alcohol past 12 months He denies the use of drugs and alcohol Past Family Social History Coded Allergies: Penicillin (Verified Allergy, Severe, 03/19/16) SWELLING Reported Medications Divalproex ER 250 Mg TaberUnknown Dose PO DAILY #30 TAB Ref 0 03/19/16 Prazosin 1 Mg CapUnknown Dose PO BID #60 CAP Ref 0 03/19/16 Sertraline 25 Mg TabUnknown Dose PO DAILY #30 TAB Ref 0 03/19/16 Aspirin 81 Mg ChewUnknown Dose CHEW DAILY Ref 0 03/19/16 Current Medications Medications (Trade) Dose Ordered Sig/Cyndi Route Start Time Stop Time Status Last Admin (Vancomycin Consult Pharmacy) 0 ml @ 0 mls/hr UNSCH OTHER 03/19/16 14:30 (Ativan) 1 mg Q6H PRN PO 03/21/16 18:00 (Ativan Inj) 1 mg Q6H PRN IM 03/21/16 18:00 (Tylenol) 650 mg Q4H PRN PO 03/21/16 18:00 (Milk Of Magnesia Liq) 30 ml DAILY PRN PO 03/21/16 18:00 (Mag-Al Plus Susp Liq) 30 ml Q6H PRN PO 03/21/16 18:00 (Habitrol 21 Mg Patch.24 Hr) 1 patch DAILY T-DERMAL 03/22/16 09:00 Miscellaneous Information 1 1 HS T-DERMAL 03/21/16 21:00 (Vancomycin Inj/ NS 500 ml Inj) 515 ml @ 250 mls/hr Q12H IV 03/22/16 11:00 Miscellaneous Information SPECIFIC LAB TO BE .. ONCE ONCE XX 03/22/16 10:45 03/22/16 10:46 (Maxipime Inj/NS Inj) 100 ml @ 200 mls/hr Q12H IV 03/22/16 10:00 03/22/16 09:43 Family History He denies Social History Patient was born and raised in [place], he has been living in [place] for 3 years, he lives alone in [place], his eyeballs, he has 3 kids, he is a , he is 100% service connected, his highest level of education is an associate degree Physical Exam Vital Signs Vital Signs Date Time Temp Pulse Resp B/P Pulse Ox O2 Delivery O2 Flow Rate FiO2 03/22/16 04:18 98.6 67 16 134/90 98 03/19/16 12:28 Nasal Cannula 2 I/O 03/21/16 03/21/16 03/22/16 08:00 16:00 00:00 Intake Total 240 ml Balance 240 ml Mental Status Examination Speech: Unremarkable Orientation: x3 Memory: Unremarkable Thought Process: Logical Thought Content: Unremarkable Hallucination Type: None Suicidal Ideation: No Homicidal Ideation: No Previous Homicide Attempts: No Judgement: WNL Affect: Good Mood: Appropriate Assessment & Plan Problem List: (1) Chronic schizoaffective disorder with acute exacerbation Assessment & Plan: On psychiatric evaluation patient presents evidence psychosis consistent the delusions of being followed by vampires, visual and auditory hallucinations, paranoia, tangential and disorganized. Patient denies depressive symptoms, he denies anxiety, no manic symptoms are observed or reported at this moment. He denies suicidal or homicidal ideation. Patient is fully oriented in 3, no deficit in attention, fluctuation of consciousness, delirium or gross cognitive impairment observed at this moment. Agree with neurology and neurosurgical consult in order to evaluate meningioma seen in Brain CT. At this point is unclear if the cause of current psychosis is primary psychiatric vs medical vs neurological. But, patient will benefit of psychiatric hospitalization for stabilization and safety. Collateral information from psychiatrist in [facility] is crucial in order to get patient baseline and complete psychiatric assessment. We'll start Risperdal 1 mg twice a day, and we will restart Depakote 500 mg twice a day. ICD Code: F25.8 Assessment & Plan Estimated LOS: Felipe Benítez MD Mar 22, 2016 10:27
[2016-03-22] MEDS: DIVALPROEX SODIUM E.R. 500 MG TAB PO SCH ×2 (10:30→21:00)
[2016-03-22] MEDS: risperiDONE 1 MG TAB PO SCH ×2 (10:30→21:43)
[2016-03-22 10:31] VITALS: O2SAT 96
[2016-03-22] MEDS ORDERED: PHARMACY ORDERED LAB XX ONE (10:45)
--- NOTE | 2016-03-22 10:48 | HHI.FPPN ---
Subjective Remarks No acute events overnight. Afebrile, vitals are stable. Appears comfortable this morning. Denies any AVH, SI/HI. Alert and oriented fully. Denies headaches , visual symptoms, chest pain, palpitations, SOB, pain anywhere. Does not have any concerns. (Yonas Ram MD R1) Objective Vitals Vital Signs Date Time Temp Pulse Resp B/P Pulse Ox O2 Delivery O2 Flow Rate FiO2 03/22/16 10:31 96 21 03/22/16 04:18 98.6 67 16 134/90 98 03/21/16 23:18 98.3 79 15 158/82 96 03/21/16 20:25 98.6 83 16 154/84 96 I/O 03/21/16 03/21/16 03/21/16 03/22/16 03/22/16 03/22/16 07:00 15:00 23:00 07:00 15:00 23:00 Intake Total 240 ml Balance 240 ml Intake Oral 240 ml # Voids 2 # Bowel Movements 0 (Yonas Ram MD R1) Result Diagram: 03/20/16 0826 03/20/16 0826 Objective Remarks GEN: NAD CV: Regular rate and rhythm without obvious murmurs LUNGS: Clear to auscultation bilaterally. Normal respiratory effort. No wheezes , rales, rhonchi. GI: Soft, nontender, nondistended. No palpable masses. NEURO/PSYCH: Awake, alert. Oriented x 3. Appropriate speech and dialogue ( Yonas Ram MD R1) A/P Assessment and Plan 60-year-old male with past medical history significant for hypertension, bipolar disorder, BPH admitted due to SIRS, altered mental status , Head CT significant for 1.6cm meningioma that was not seen on prior CT from . Discharge Planning Psychiatry recommending psychiatric hospitalization for stability and safety at this time. sdw Dr. Mcmahon (Yonas Ram MD R1) Assessment and Plan Attending note: Patient seen and examined. Case reviewed and discussed with resident team. Agree with plan of care as discussed with physician and documented in the resident note. (Hubert Mcmahon MD) Problem List: (1) SIRS (systemic inflammatory response syndrome) Status: Resolved Plan: Meets SIRS criteria based on fever and leukocytosis. History is also very poor as patient is hallucinating but I am unsure if this is due to underlying psychiatric illness versus delirium. There is a history of a rat bite a few weeks ago but site of bite does not look infected. Neurologically patient is intact. Etiology unclear at this time. Will consider discontinuing broad-spectrum antibiotics -Leukocytosis resolved -No lactic acidosis -Ammonia, lactic acid, TSH/FT4 unremarkable -UDS positive for cocaine -Blood cultures negative 1 day -Cardiac telemetry Imaging: * Head CT negative: 1.6 cm left hemisphere high isodense rounded appearance of soft tissue density abutting the calvarium which could represent a non- calcified meningioma * Brain MRI: Enhancing estra-axial mass characteristic of a meningioma. No significant mass effect and no edema. No evidence of hemorrhage or infarction. * CXR: Unremarkable Medications: * Cefepime 2 g q12 (03/19- * Vancomycin (03/19 * Rocephin 1 in the ED (2) Bipolar 1 disorder Status: Chronic Plan: Reports a history of bipolar but was unable to clarify medications -Valproic acid level low at 4 -Reports taking Sertraline 200mg daily and Divalproex 600mg daily? -Will consult psychiatry, appreciation recommendations * Depakote 500 mg po bid * Risperdal 1 mg po q12h (3) Syncope Status: Acute Plan: Reports a history of syncope that is related to orthostatic hypotension as it occurs mostly when going from sitting to standing position -Orthostatic vital signs ordered -Cardiac telemetry (4) Nutrition, metabolism, and development symptoms Status: Acute Plan: Diet: Regular Electrolytes: Unremarkable Fluids: None DVT prophylaxis: Lovenox GI prophylaxis: Not indicated Chronic conditions: * BPH: prazosin 1mg BID * HTN: Vasotec PRN (Yonas Ram MD R1) Yonas Ram MD R1 Mar 22, 2016 10:48 Hubert Mcmahon MD Mar 22, 2016 18:08
[2016-03-22] MEDS ORDERED: ENALAPRILAT 2.5 MG/2 ML VIAL IV PUSH PRN (11:00)
[2016-03-22] MEDS ORDERED: VANCOMYCIN INJ 1,500 MG in SODIUM CHLORID 0.9% 500 ML INJ 500 ML IV SCH (11:00)
[2016-03-22 12:15] LABS: BICARBONATE 26.2 MEQ/L (21.0-32.0); HDL CHOLESTEROL 21.6 MG/DL (40.0-60.0); POTASSIUM 4.1 MEQ/L (3.5-5.1)
[2016-03-22 13:00] VITALS: BP_SYST 136; BP_SYST 139; BP_SYST 141; BP_DIAS 77; BP_DIAS 78; BP_DIAS 81; PULSE 75; RESP 18; TEMP 98.4; O2SAT 99
[2016-03-22] MEDS ORDERED: Vancomycin Consult Pharmacy 1 EA OTHER SCH (14:00)
[2016-03-22 16:00] VITALS: BP_SYST 155; BP_SYST 159; BP_DIAS 80; BP_DIAS 99; PULSE 82; RESP 18; TEMP 98.5; O2SAT 98
[2016-03-22 17:08] VITALS: BP_SYST 155; BP_SYST 158; BP_SYST 159; BP_DIAS 80; BP_DIAS 86; BP_DIAS 99; PULSE 82; RESP 18; TEMP 98.5; O2SAT 98
--- NOTE | 2016-03-22 20:11 | HHI.PR ---
Review/Management Diagnosis left parietal meningioma left hemisphere seizure focus Plan continue [facility] Diagnosis/Plan: Subjective Subjective Comments No acute events reported No seizures noted Active Medications Current Medications Medications (Trade) Dose Ordered Sig/Cyndi Route Start Time Stop Time Status Last Admin (Ativan) 1 mg Q6H PRN PO 03/21/16 18:00 (Ativan Inj) 1 mg Q6H PRN IM 03/21/16 18:00 (Tylenol) 650 mg Q4H PRN PO 03/21/16 18:00 (Milk Of Magnesia Liq) 30 ml DAILY PRN PO 03/21/16 18:00 (Mag-Al Plus Susp Liq) 30 ml Q6H PRN PO 03/21/16 18:00 (Habitrol 21 Mg Patch.24 Hr) 1 patch DAILY T-DERMAL 03/22/16 09:00 Miscellaneous Information 1 HS T-DERMAL 03/21/16 21:00 (Depakote Er) 500 mg BID PO 03/22/16 10:30 (risperDAL) 1 mg Q12HR PO 03/22/16 10:30 (Minipress) 1 mg Q12HR PO 03/22/16 21:00 (Vasotec Inj) 2.5 mg Q6H PRN IV PUSH 03/22/16 11:00 Allergies Allergies Coded Allergies Penicillin (Verified Allergy, Severe, 03/19/16) Exam I&O / VS 03/21/16 03/21/16 03/22/16 15:00 23:00 07:00 Intake Total 240 ml Balance 240 ml Intake Oral 240 ml # Voids 2 # Bowel Movements 0 Vital Signs Date Time Temp Pulse Resp B/P Pulse Ox O2 Delivery O2 Flow Rate FiO2 03/22/16 17:08 98.5 82 18 155/80 98 159/99 158/86 03/22/16 13:00 98.4 75 18 141/78 99 139/81 136/77 03/22/16 10:31 96 21 03/22/16 04:18 98.6 67 16 134/90 98 03/21/16 23:18 98.3 79 15 158/82 96 03/21/16 20:25 98.6 83 16 154/84 96 Exam Comments alert, follows simple commands CN 2-12 normal Motor 5/5 bue and ble Objective Micro and Labs Laboratory Tests Test 03/21/16 03/22/16 03/22/16 21:50 05:09 11:25 Hemoglobin A1c 5.2 White Blood Count 10.5 Red Blood Count 3.65 Hemoglobin 12.6 Hematocrit 36.0 Mean Corpuscular Volume 98.6 Mean Corpuscular Hemoglobin 34.5 Mean Corpuscular Hemoglobin 35.0 Concent Red Cell Distribution Width 14.1 Platelet Count 270 Mean Platelet Volume 8.4 Neutrophils (%) (Auto) 61.7 Lymphocytes (%) (Auto) 22.3 Monocytes (%) (Auto) 13.9 Eosinophils (%) (Auto) 1.6 Basophils (%) (Auto) 0.5 Neutrophils # (Auto) 6.5 Lymphocytes # (Auto) 2.3 Monocytes # (Auto) 1.5 Eosinophils # (Auto) 0.2 Basophils # (Auto) 0.1 CBC Comment AUTO DIFF Differential Total Cells 100 Counted Neutrophils % (Manual) 72 Band Neutrophils % 3 Lymphocytes % 12 Monocytes % 9 Eosinophils % 1 Neutrophils # (Manual) 8.2 Metamyelocytes 2 Myelocytes 1 Differential Comment FINAL DIFF MANUAL Atypical Lymphocytes Platelet Estimate NORMAL Platelet Morphology Comment NORMAL Prothrombin Time 12.1 Prothromb Time International 1.1 Ratio Activated Partial 29.8 Thromboplast Time Sodium Level 141 140 Potassium Level 3.9 4.1 Chloride Level 109 107 Carbon Dioxide Level 25.7 26.2 Anion Gap 6 7 Blood Urea Nitrogen 14 13 Creatinine 0.84 0.98 Estimat Glomerular Filtration 94 78 Rate Random Glucose 96 98 Calcium Level 8.0 8.1 Total Bilirubin 0.6 Aspartate Amino Transf 149 (AST/SGOT) Alanine Aminotransferase 154 (ALT/SGPT) Alkaline Phosphatase 79 Total Protein 5.4 Albumin 2.3 Triglycerides Level 90 106 Cholesterol Level 134 150 LDL Cholesterol 94 107 HDL Cholesterol 22.5 21.6 Cholesterol/HDL Ratio 5.95 6.94 Vancomycin Level Trough 14.8 Date/Time Procedure Status Source Growth 03/20/16 05:30 Urine Culture - Final Complete Urine Catheterized Urine NO GROWTH IN 48 HOURS. 03/19/16 11:38 Influenza Types A,B Antigen (SADIE) - Final Complete Nasal Washing NEGATIVE FOR FLU A AND B ANTIGEN.... 03/19/16 11:18 Aerobic Blood Culture - Preliminary Resulted Blood Peripheral NO GROWTH IN 3 DAYS 03/19/16 11:18 Anaerobic Blood Culture - Preliminary Resulted Blood Peripheral NO GROWTH IN 3 DAYS Saurav Del Valle PhD Mar 22, 2016 20:11
[2016-03-22] MEDS ORDERED: PILL SPLITTER OTHER PRN (20:30)
[2016-03-22 20:57] VITALS: BP 145/80; PULSE 81; RESP 16; TEMP 97.9; O2SAT 97
[2016-03-22] MEDS: PRAZOSIN HCL 1 MG CAP PO SCH (21:00)
[2016-03-22] MEDS: REMOVE OLD NICOTINE PATCH T-DERMAL SCH (21:00)
[2016-03-22] MEDS: levETIRAcetam 250 MG TAB PO SCH (21:43)
[2016-03-23] VITALS: BP 140/68; PULSE 75; RESP 14; TEMP 98.4; O2SAT 94
[2016-03-23 06:09] VITALS: BP 145/86; PULSE 71; RESP 14; TEMP 98.7; O2SAT 95
[2016-03-23 07:16] VITALS: O2SAT 94
--- NOTE | 2016-03-23 08:54 | HHI.FPPN ---
Subjective Remarks No events overnight. Afebrile, BPs ranging 130s-150s/60s-90s over past 24 hours. Patient appears comfortable this morning. Denies auditory or visual hallucinations. Denies SI/HI. He is without complaints or concerns. Denies headaches, visual changes, chest pain, SOB, pain or swelling of lower extremities. (oYnas Ram MD R1) Objective Vitals Vital Signs Date Time Temp Pulse Resp B/P Pulse Ox O2 Delivery O2 Flow Rate FiO2 03/23/16 07:16 94 21 03/23/16 06:09 98.7 71 14 145/86 95 03/23/16 00:00 98.4 75 14 140/68 94 03/22/16 22:25 21 03/22/16 20:57 97.9 81 16 145/80 97 03/22/16 17:08 98.5 82 18 155/80 98 159/99 158/86 03/22/16 16:00 98.5 82 18 155/80 98 159/99 03/22/16 13:00 98.4 75 18 141/78 99 139/81 136/77 03/22/16 10:31 96 21 I/O 03/22/16 03/22/16 03/22/16 03/23/16 03/23/16 03/23/16 07:00 15:00 23:00 07:00 15:00 23:00 Intake Total 505 ml 360 ml Output Total 1450 ml Balance 505 ml -1090 ml Intake Oral 505 ml 360 ml Output Urine Total 1450 ml # Voids 2 1 # Bowel Movements 0 (Yonas Ram MD R1) Result Diagram: 03/22/16 0509 03/22/16 1125 Objective Remarks GEN: NAD CV: Regular rate and rhythm without obvious murmurs LUNGS: Clear to auscultation bilaterally. Normal respiratory effort. No wheezes , rales, rhonchi. GI: Soft, nontender, nondistended. No palpable masses. NEURO/PSYCH: Awake, alert. Oriented x 3. Appropriate speech and dialogue ( Yonas Ram MD R1) A/P Assessment and Plan 60-year-old male with past medical history significant for hypertension, bipolar disorder, BPH admitted due to meeting SIRS criteria, altered mental status, and head CT significant for a 1.6cm meningioma that was not seen on prior CT from 03/19/16. Discharge Planning Psychiatry recommending psychiatric hospitalization for stability and safety at this time. sdw Dr. Carter (Yonas Ram MD R1) Attending Attestation Pt. examined and case discussed with resident physicians I have read the above note and agree with the assessment/plan as discussed with me I was involved in all medical decision making for this patient. Edilson Villalpando MD (Edilson Villalpando MD) Problem List: (1) Bipolar 1 disorder Status: Chronic Plan: Reports a history of bipolar disorder but was unable to clarify medications -Valproic acid level low at 4 -Reports previously taking Sertraline and Divalproex -Consult psychiatry, appreciation recommendations * Continue Risperdal 1 mg po q12h * Hold Depakote 500 mg po bid (2) Meningioma Status: Chronic Plan: Head CT showing a 1.6 cm left hemisphere high isodense rounded appearance of soft tissue density which could represent a non-calcified meningioma Neurosurgery consulted - Patient does not require any neurosurgical intervention at this time - Recommend serial imaging on a yearly basis to ensure it does not grow Neurology consulted - Continue Keppra due to left hemisphere seizure focus (3) SIRS (systemic inflammatory response syndrome) Status: Resolved Plan: Met SIRS criteria based on fever and leukocytosis. There is a history of a rat bite a few weeks ago but site of bite does not look infected. Neurologically patient remains intact. Etiology unclear at this time. Broad- spectrum antibiotics have been discontinued. -Leukocytosis resolved -No lactic acidosis -Ammonia, lactic acid, TSH/FT4 unremarkable -UDS from 03/20 positive for cocaine -Blood cultures from 03/19 negative 3 day and BCx from 03/20 negative after 2 days -Discontinue cardiac telemetry Imaging: * Head CT negative: 1.6 cm left hemisphere high isodense rounded appearance of soft tissue density abutting the calvarium which could represent a non- calcified meningioma * Brain MRI: Enhancing estra-axial mass characteristic of a meningioma. No significant mass effect and no edema. No evidence of hemorrhage or infarction. * CXR: Unremarkable Medications (all discontinued): * Cefepime 2 g q12 (03/19-03/22) * Vancomycin (03/19-03/22) * Rocephin 1 in the ED (4) Syncope Status: Acute Plan: Reports a history of syncope that is related to orthostatic hypotension as it occurs mostly when going from sitting to standing position -Orthostatic vital signs within normal limits (5) Nutrition, metabolism, and development symptoms Status: Acute Plan: Diet: Regular Electrolytes: Continue to monitor Fluids: None DVT prophylaxis: Lovenox GI prophylaxis: Not indicated HTN: Vasotec PRN, will consider oral antihypertensive if BPs remain elevated (Yonas Ram MD R1) Yonas Ram MD R1 Mar 23, 2016 08:54 Edilson Villalpando MD Mar 23, 2016 12:24
[2016-03-23] MEDS: NICOTINE 21 MG/24 HR PATCH T-DERMAL SCH (09:00)
[2016-03-23] MEDS: levETIRAcetam 250 MG TAB PO SCH ×2 (09:31→21:08)
[2016-03-23] MEDS: risperiDONE 1 MG TAB PO SCH ×2 (09:31→21:07)
[2016-03-23] MEDS: ENOXAPARIN SODIUM 40 MG/0.4 ML SYRINGE SQ SCH (10:00)
--- NOTE | 2016-03-23 12:24 | HHI.PYPN ---
Subjective Remarks The patient was seen for reevaluation today, he was calm and cooperative, even pleasant, patient reports a good mood, he says that he is having a very good time here in the unit, no episodes of aggressive behavior or agitation reported by nurses, patient states that he has been seeing "vampires, but I know they are somewhere", at this moment the patient denies suicidal or homicidal ideation , he denies visual and auditory hallucinations. He is fully oriented 3. Review of Systems Other No somatic complaints Objective Alert: Yes [place]: Person, Place, Date Mood: Calm Affect: Euthymic Memory Intact: Immediate, Recent, Remote Hallucinations: Other (he denies now) Delusions: No Delusion Type: Paranoid Suicidal: Ideation (he denies now) Homicidal: Ideation (he denies ) Insight/Judgement fair Labs Date/Time Procedure Status Source Growth 03/20/16 05:30 Urine Culture - Final Complete Urine Catheterized Urine NO GROWTH IN 48 HOURS. 03/19/16 11:38 Influenza Types A,B Antigen (SADIE) - Final Complete Nasal Washing NEGATIVE FOR FLU A AND B ANTIGEN.... 03/19/16 11:18 Aerobic Blood Culture - Preliminary Resulted Blood Peripheral NO GROWTH IN 4 DAYS 03/19/16 11:18 Anaerobic Blood Culture - Preliminary Resulted Blood Peripheral NO GROWTH IN 4 DAYS Vitals/IOs Vital Signs Date Time Temp Pulse Resp B/P Pulse Ox O2 Delivery O2 Flow Rate FiO2 03/23/16 07:16 94 21 03/23/16 06:09 98.7 71 14 145/86 03/19/16 12:28 Nasal Cannula 2 Intake and Output 03/22/16 03/22/16 03/23/16 08:00 16:00 00:00 Intake Total 505 ml Balance 505 ml Assessment & Plan Problem List: (1) Chronic schizoaffective disorder with acute exacerbation Assessment & Plan: Patient continues to show some paranoia of vampires follow him, will increase Risperdal to 2 mg twice a day. No aggressive behavior, agitation observed or reported. Patient is fully compliant with medications. ICD Code: F25.8 Assessment & Plan Estimated LOS: days Justification for Cont. Inpt. Patient has a high probability to decompensate out of structure environment and without medications Felipe Diana MD Mar 23, 2016 12:24
[2016-03-23 12:47] LABS: AUTOMATED NEUTROPHIL # 6.5 TH/MM3 (1.8-7.7); BASOPHIL # 0.1 TH/MM3 (0-0.2); BASOPHIL % 0.9 % (0.0-2.0); EOSINOPHIL # 0.1 TH/MM3 (0-0.4); EOSINOPHIL % 1.4 % (0.0-4.0); HEMATOCRIT 39.8 % (39.0-51.0); HEMO FLAGS DIFF FINAL; LYMPH % 19.9 % (9.0-44.0); MEAN CELL VOLUME 99.3 FL (80.0-100.0); MEAN CORPUSCULAR HEMOGLOBIN 34.8 PG (27.0-34.0); MONO % 14.2 % (0.0-8.0); NEUT % 63.6 % (16.0-70.0); PLATELET COUNT 339 TH/MM3 (150-450); RED CELL DISTRIBUTION WIDTH 14.2 % (11.6-17.2); WHITE BLOOD COUNT 10.2 TH/MM3 (4.0-11.0)
[2016-03-23 13:03] LABS: BICARBONATE 23.7 MEQ/L (21.0-32.0); POTASSIUM 4.2 MEQ/L (3.5-5.1)
[2016-03-23 18:00] VITALS: BP 152/80; PULSE 76; RESP 20; TEMP 98.2; O2SAT 95
[2016-03-23] MEDS: REMOVE OLD NICOTINE PATCH T-DERMAL SCH (21:00)
[2016-03-23] MEDS: DIVALPROEX SODIUM E.R. 500 MG TAB PO SCH (21:07)
[2016-03-23] MEDS: PRAZOSIN HCL 1 MG CAP PO SCH (21:08)
[2016-03-23] MEDS: ACETAMINOPHEN 325 MG TAB PO PRN (21:08)
[2016-03-24] VITALS: BP 121/71; PULSE 85; RESP 17; TEMP 98.6; O2SAT 96
[2016-03-24 04:14] VITALS: BP 101/60; PULSE 70; RESP 14; TEMP 98.2; O2SAT 94
[2016-03-24 07:10] VITALS: O2SAT 94
[2016-03-24 08:00] VITALS: BP 124/64; PULSE 64; RESP 13; TEMP 97.6; O2SAT 94
[2016-03-24] MEDS: NICOTINE 21 MG/24 HR PATCH T-DERMAL SCH (09:00)
--- NOTE | 2016-03-24 09:41 | HHI.PYPN ---
Subjective Remarks Patient seen for reevaluation today along with nurse in charge Gilbert. Patient was sitting comfortable in his bed watching TV, he was calm, cooperative and pleasant, explains that he feels really care, he described his mood as"fine", he says that he is hoping to be discharged home "because nobody is feeding my pets, they might be right now", he expresses motivation to continue his psychiatric care as an outpatient, also to be compliant with psychotropics, he denies visual and auditory hallucinations, he says that as long the his taking his medication his psychosis is under control, he denies suicidal or homicidal ideation. No paranoia, delusions, disorganized behavior or speech, tangentiality, internal preoccupation, agitation or aggressive behavior observed. Review of Systems Other Patient doesn't have any somatic complaint Objective Alert: Yes [place]: Person, Place, Date Mood: Calm Affect: Euthymic Memory Intact: Immediate, Recent, Remote Hallucinations: Other (he denies now) Delusions: No Delusion Type: Other (none) Suicidal: Ideation (he denies now) Homicidal: Ideation (he denies ) Insight/Judgement Good Labs Test 03/23/16 12:35 White Blood Count 10.2 TH/MM3 Red Blood Count 4.00 MIL/MM3 Hemoglobin 13.9 GM/DL Hematocrit 39.8 % Mean Corpuscular Volume 99.3 FL Mean Corpuscular Hemoglobin 34.8 PG Mean Corpuscular Hemoglobin 35.0 % Concent Red Cell Distribution Width 14.2 % Platelet Count 339 TH/MM3 Mean Platelet Volume 8.0 FL Neutrophils (%) (Auto) 63.6 % Lymphocytes (%) (Auto) 19.9 % Monocytes (%) (Auto) 14.2 % Eosinophils (%) (Auto) 1.4 % Basophils (%) (Auto) 0.9 % Neutrophils # (Auto) 6.5 TH/MM3 Lymphocytes # (Auto) 2.0 TH/MM3 Monocytes # (Auto) 1.5 TH/MM3 Eosinophils # (Auto) 0.1 TH/MM3 Basophils # (Auto) 0.1 TH/MM3 CBC Comment DIFF FINAL Differential Comment Sodium Level 138 MEQ/L Potassium Level 4.2 MEQ/L Chloride Level 106 MEQ/L Carbon Dioxide Level 23.7 MEQ/L Anion Gap 8 MEQ/L Blood Urea Nitrogen 10 MG/DL Creatinine 0.99 MG/DL Estimat Glomerular Filtration 77 ML/MIN Rate Random Glucose 87 MG/DL Calcium Level 8.5 MG/DL Date/Time Procedure Status Source Growth 03/20/16 05:30 Urine Culture - Final Complete Urine Catheterized Urine NO GROWTH IN 48 HOURS. 03/19/16 11:38 Influenza Types A,B Antigen (SADIE) - Final Complete Nasal Washing NEGATIVE FOR FLU A AND B ANTIGEN.... 03/19/16 11:18 Aerobic Blood Culture - Preliminary Resulted Blood Peripheral NO GROWTH IN 4 DAYS 03/19/16 11:18 Anaerobic Blood Culture - Preliminary Resulted Blood Peripheral NO GROWTH IN 4 DAYS Vitals/IOs Vital Signs Date Time Temp Pulse Resp B/P Pulse Ox O2 Delivery O2 Flow Rate FiO2 03/24/16 08:00 97.6 64 13 124/64 94 03/24/16 07:10 21 Intake and Output 03/23/16 03/23/16 03/24/16 08:00 16:00 00:00 Intake Total 560 ml 440 ml 450 ml Output Total 1450 ml 550 ml 700 ml Balance -890 ml -110 ml -250 ml Assessment & Plan Problem List: (1) Chronic schizoaffective disorder with acute exacerbation Assessment & Plan: Patient continues to show good adherence and response to psychotropic, no evidence of paranoia, delusions, perceptual disturbances today on reevaluation. Patient is fully compliant with medications. We will order Depakote levels, and CMP. Will communicate with social science manager to start discharge planning. ICD Code: F25.8 Assessment & Plan Estimated LOS: days Justification for Cont. Inpt. Patient needs medication adjustment, still poses a high risk to decompensate out of the structured environment. Felipe Diana MD Mar 24, 2016 09:41
[2016-03-24] MEDS: PRAZOSIN HCL 1 MG CAP PO SCH ×2 (09:43→20:06)
[2016-03-24] MEDS: DIVALPROEX SODIUM E.R. 500 MG TAB PO SCH ×2 (09:43→20:05)
[2016-03-24] MEDS: risperiDONE 1 MG TAB PO SCH ×2 (09:43→20:06)
[2016-03-24] MEDS: levETIRAcetam 250 MG TAB PO SCH ×2 (09:43→20:05)
[2016-03-24] MEDS: ENOXAPARIN SODIUM 40 MG/0.4 ML SYRINGE SQ SCH (09:44)
[2016-03-24 10:52] LABS: ALT (GPT) 137 U/L (12-78); ANION GAP 7 MEQ/L (5-15); AST (GOT) 75 U/L (15-37); BICARBONATE 29.9 MEQ/L (21.0-32.0); BLOOD UREA NITROGEN 11 MG/DL (7-18); CHLORIDE 103 MEQ/L (98-107); GLOMERULAR FILTRATION RATE 74 ML/MIN (>89); POTASSIUM 3.9 MEQ/L (3.5-5.1); SODIUM (NA) 140 MEQ/L (136-145)
[2016-03-24 10:53] LABS: ALKALINE PHOSPHATASE 81 U/L (45-117); TOTAL BILIRUBIN ADULT 0.6 MG/DL (0.2-1.0)
--- NOTE | 2016-03-24 13:35 | HHI.FPPN ---
Subjective Remarks No acute events overnight. Afebrile, vitals are stable. Appears comfortable this morning. Denies AVH, denies SI/HI. Denies chest pain, headaches, shortness of breath, pain or swelling of either lower extremity. Objective Vitals Vital Signs Date Time Temp Pulse Resp B/P Pulse Ox O2 Delivery O2 Flow Rate FiO2 03/24/16 08:00 97.6 64 13 124/64 94 03/24/16 07:10 94 21 03/24/16 04:14 98.2 70 14 101/60 94 03/24/16 00:00 98.6 85 17 121/71 96 03/23/16 22:10 21 03/23/16 18:00 98.2 76 20 152/80 95 I/O 03/23/16 03/23/16 03/23/16 03/24/16 03/24/16 03/24/16 07:00 15:00 23:00 07:00 15:00 23:00 Intake Total 360 ml 640 ml 450 ml 1240 ml Output Total 1450 ml 550 ml 700 ml Balance -1090 ml 90 ml -250 ml 1240 ml Intake Oral 360 ml 640 ml 450 ml 1240 ml Output Urine Total 1450 ml 550 ml 700 ml # Voids 1 2 # Bowel Movements 0 0 Result Diagram: 03/23/16 1235 03/24/16 0954 Objective Remarks GEN: NAD CV: Regular rate and rhythm without obvious murmurs LUNGS: Clear to auscultation bilaterally. Normal respiratory effort. No wheezes , rales, rhonchi. GI: Soft, nontender, nondistended. No palpable masses. NEURO/PSYCH: Awake, alert. Oriented x 3. Appropriate speech and dialogue A/P Assessment and Plan 60-year-old male with past medical history significant for hypertension, bipolar disorder, BPH admitted due to meeting SIRS criteria, altered mental status, and head CT significant for a 1.6cm meningioma that was not seen on prior CT from 03/19/16. Discharge Planning Psychiatry recommending psychiatric hospitalization for stability and safety at this time as he is a high risk to decompensate in a less structured environment. sdw Dr. Marks Problem List: (1) Bipolar 1 disorder Status: Chronic Plan: Reports a history of bipolar disorder but was unable to clarify medications -Valproic acid level low at 17 -Reports previously taking Sertraline and Divalproex -Consult psychiatry, appreciation recommendations * Risperdal 2 mg po q12h * Depakote 500 mg po bid (2) Meningioma Status: Chronic Plan: Head CT showing a 1.6 cm left hemisphere high isodense rounded appearance of soft tissue density which could represent a non-calcified meningioma Neurosurgery consulted - Patient does not require any neurosurgical intervention at this time - Recommend serial imaging on a yearly basis to ensure it does not grow Neurology consulted - Continue Keppra due to left hemisphere seizure focus (3) SIRS (systemic inflammatory response syndrome) Status: Resolved Plan: Met SIRS criteria based on fever and leukocytosis. There is a history of a rat bite a few weeks ago but site of bite does not look infected. Neurologically patient remains intact. Etiology unclear at this time. Broad- spectrum antibiotics have been discontinued. -Leukocytosis resolved -No lactic acidosis -Ammonia, lactic acid, TSH/FT4 unremarkable -UDS from 03/20 positive for cocaine -Blood cultures from 03/19 negative 3 day and BCx from 03/20 negative after 2 days -Discontinue cardiac telemetry Imaging: * Head CT negative: 1.6 cm left hemisphere high isodense rounded appearance of soft tissue density abutting the calvarium which could represent a non- calcified meningioma * Brain MRI: Enhancing estra-axial mass characteristic of a meningioma. No significant mass effect and no edema. No evidence of hemorrhage or infarction. * CXR: Unremarkable Medications (all discontinued): * Cefepime 2 g q12 (03/19-03/22) * Vancomycin (03/19-03/22) * Rocephin 1 in the ED (4) Syncope Status: Acute Plan: Reports a history of syncope that is related to orthostatic hypotension as it occurs mostly when going from sitting to standing position -Orthostatic vital signs within normal limits (5) Nutrition, metabolism, and development symptoms Status: Acute Plan: Diet: Regular Electrolytes: WNLs Fluids: None DVT prophylaxis: Lovenox GI prophylaxis: Not indicated HTN: Vasotec PRN Medically stable, discussed with RN. Will sign off. Yonas Ram MD R1 Mar 24, 2016 13:35
[2016-03-24] MEDS: ACETAMINOPHEN 325 MG TAB PO PRN (18:17)
[2016-03-24 18:36] VITALS: BP 153/65; PULSE 81; RESP 15; TEMP 97.6; O2SAT 97
[2016-03-24] MEDS: REMOVE OLD NICOTINE PATCH T-DERMAL SCH (20:06)
[2016-03-25] MEDS: ACETAMINOPHEN 325 MG TAB PO PRN (05:13)
[2016-03-25 06:31] VITALS: BP 118/79; PULSE 85; RESP 19; TEMP 97.4; O2SAT 100
[2016-03-25] MEDS: NICOTINE 21 MG/24 HR PATCH T-DERMAL SCH (09:00)
[2016-03-25] MEDS ORDERED: PRAZ1 PO (09:25)
[2016-03-25] MEDS ORDERED: DEPA500T3 PO (09:25)
[2016-03-25] MEDS ORDERED: RISP1 PO (09:25)
[2016-03-25] MEDS ORDERED: LEVE250 PO (09:25)
[2016-03-25] MEDS: levETIRAcetam 250 MG TAB PO SCH (09:27)
[2016-03-25] MEDS: ENOXAPARIN SODIUM 40 MG/0.4 ML SYRINGE SQ SCH (09:27)
[2016-03-25] MEDS: risperiDONE 1 MG TAB PO SCH (09:27)
[2016-03-25] MEDS: PRAZOSIN HCL 1 MG CAP PO SCH (09:27)
[2016-03-25] MEDS: DIVALPROEX SODIUM E.R. 500 MG TAB PO SCH (09:27)
--- NOTE | 2016-03-25 09:32 | HHI.DS ---
Psychiatry Discharge Summary Inpatient Psychiatric care?: Yes Advance Directive: No Reason Not Provided: has one Mental Health AdvanceDirective: No Health Care Proxy: No Admission Admission Date Mar 21, 2016 at 16:14 Admission Diagnosis: (1) Delirium ICD Code: R41.0 Brief History My assessment yesterday: "The patient is a 60-year-old man, domiciled alone in [place], [facility], with a self-reported psychiatric history of bipolar disorder , no psychiatric hospitalizations, no previous suicide attempts, receiving outpatient psychiatric care in [place], he isn't Depakote 250 mg twice a day, and Zoloft 25 mg, past medical history significant for hypertension, bipolar disorder, BPH who left [place] AMA yesterday, currently admitted under the [place] Act due to erratic behavior. "Patient was admitted due to sepsis, delirium, syncope. He is unable to explain why he left AMA. After leaving the hospital he was found experiencing hallucinations and responding to external stimuli. Patient was brought to the ED by police. Patient was also noted to have an open wound on his right elbow that was not previously documented. He is unable to account for how this injury occurred or how long it has been present. Patient is unable to answer questions directly and provides no additional relevant history."Patient was seen for psychiatric evaluation in the ER, patient explains that the reason he is in the hospital is because a rat bit him. He explains that he has been feeding his snakes at home and when he was giving a rat to the snakes one of the rats bit him. He also complains that there are several vampires hanging out of his house "in a need to protect myself , if they come close to my house I will shoot them", patient refuses to answer it he has a gun at home. He says that he has been seen vampires around him, "sometime inside my house, they couldn't even be here"for a long time now. Patient also reports auditory hallucination, voices telling him to fight against the vampires. He reports good mood, denies depressive symptoms, he denies anxiety. Patient is tangential and disorganized, but redirectable, he is oriented 3, he does not seem to be confused or delirium. No pressure speech , flight of ideas, are noted during this evaluation. Patient denies the use of illicit drugs, he also denies the use of alcohol. Patient explains that he has been "a psychiatric patient for a long time"and he sees a psychiatrist in [place], however he seems to have a hard time answering if he has been hospitalized and what medication his taking." Today 03/22/2016: Patient was seen for psychiatric evaluation, he seems to be comfortable in his bed, eating his breakfast, he is calm and cooperative, patient says that he feels much better than yesterday, he denies distress, he denies pain, he says that his nausea and vomiting is already cured, he endorses good mood, he explains that he is a little concerned "because nobody is taking care of my snakes at home", he clarifies that he has two snakes as pets. He denies suicidal and homicidal ideation, he denies visual and auditory hallucinations. He says that he is no seen vampires anymore "it happened yesterday I don't know why, is the first time that happened to me, I was also very confused", patient is fully oriented 3, no attention deficit, fluctuation of consciousness are present. No paranoia, delusions, aggressive behavior or agitation observed during visible. Tobacco Use In Past 30 Days: Refused To Answer Alcohol Use: 2-4 Times Per Month Hospital Course Patient was admitted in the psychiatric reed due to visual hallucinations of vampires trying to attack him, disorganized behavior and thought, tangentiality , in the context of underlying medical acute illnesses. Since day one patient was calm and cooperative, he was fully compliant with psychotropics, insightful about his psychosis, motivated to get better. He showed adequate response to psychotropics and psychotherapy. During that hospitalization no aggressive behavior, agitation, behavior or mood dysregulation was observed or reported. He was described as very easy to deal patient, usually with a very good sense of humor, non-problematic. On his last day, just previously to discharge, patient reports good mood, he has a plan to continue his medical, psychiatric care in [place] system. He seems to be particularly motivated to continue with medications and follow-ups. She denies suicidal or homicidal ideation. He denies visual and auditory hallucination. Results Blood Pressure 118 / 79 Vital Signs Date Time Temp Pulse Resp B/P Pulse Ox O2 Delivery O2 Flow Rate FiO2 03/25/16 06:31 97.4 85 19 118/79 100 03/24/16 07:10 21 Laboratory Tests Test 03/22/16 03/23/16 03/24/16 11:25 12:35 09:54 Estimat Glomerular Filtration 78 ML/MIN (>89) 77 ML/MIN (>89) 74 ML/MIN (>89) Rate Calcium Level 8.1 MG/DL (8.5-10.1) LDL Cholesterol 107 MG/DL (0-99) HDL Cholesterol 21.6 MG/DL (40.0-60.0) Vancomycin Level Trough 14.8 MCG/ML (5.0-10.0) Red Blood Count 4.00 MIL/MM3 (4.50-5.90) Mean Corpuscular Hemoglobin 34.8 PG (27.0-34.0) Monocytes (%) (Auto) 14.2 % (0.0-8.0) Monocytes # (Auto) 1.5 TH/MM3 (0-0.9) Random Glucose 110 MG/DL (74-106) Aspartate Amino Transf 75 U/L (15-37) (AST/SGOT) Alanine Aminotransferase 137 U/L (12-78) (ALT/SGPT) Total Protein 5.9 GM/DL (6.4-8.2) Albumin 2.4 GM/DL (3.4-5.0) Valproic Acid (Depakene) Level 17 MCG/ML (50-100) Laboratory Results Test 03/21/16 03/22/16 03/24/16 21:50 11:25 09:54 Hemoglobin A1c 5.2 % (4.3-6.0) Triglycerides Level 106 MG/DL (42-150) Cholesterol Level 150 MG/DL (120-200) LDL Cholesterol 107 MG/DL (0-99) HDL Cholesterol 21.6 MG/DL (40.0-60.0) Valproic Acid (Depakene) Level 17 MCG/ML (50-100) Summary of Procedures None Imaging Last Impressions Chest X-Ray 03/19/16 1110 Signed Impressions: Service Date/Time: Saturday, March 19, 2016 12:09 - CONCLUSION: No acute cardiopulmonary abnormality is identified. Crispin Atwood MD Head CT 03/19/16 0000 Signed Impressions: Service Date/Time: Saturday, March 19, 2016 14:16 - CONCLUSION: 1. No evidence of acute intracranial pathology. No masses are identified. Blake Moreno MD Pending results at discharge: No Medications # of Antipsychotic meds at D/C: 1 Approp Antipsych med options 1 - Minimum of three failed multiple trials of monotherapy. 2 - Documented plan to taper to monotherapy due to previous use of multiple meds OR cross-taper in progress at D/C. 3 - Documentation of augmentation of Clozapine. 4 - Justification other than those listed in allowable values 1-3, document here : Discharge Discharge Date: Mar 25, 2016 Discharge Diagnosis: (1) Chronic schizoaffective disorder with acute exacerbation Diagnosis: Principal ICD Code: F25.8 Mental Status Exam at Disch man, tall with multiple visible tattoos, age appearing, good hygiene, calm and cooperative, his his speech is spontaneous and fluent, his mood is euthymic, his affect is congruent with mood, he stopped process is coherent, relevant, and logical, he stopped process is devoid of paranoia, suicidal ideation, visual hallucinations, auditory hallucinations, homicidal ideation, delusions. His insight, judgment, impulse control is good, his cognition is intact. Pt Condition on Discharge: Stable Discharge Disposition: Discharge Home Discharge Instructions Diet Instructions: As Tolerated, No Restrictions Activities you can perform: Regular-No Restrictions Scheduled [facility] Dis[facility] Time > 30 minutes Discharge/Advance Care Plan Health Problems: (1) Chronic schizoaffective disorder with acute exacerbation Goals to promote your health * To prevent worsening of your condition and complications * To maintain your health at the optimal level Directions to meet your goals Take your medications as prescribed Follow your dietary instruction Follow activity as directed Keep your appointments as scheduled Take your immunizations and boosters as scheduled If your symptoms worsen call your PCP, if no PCP go to Urgent Care Center or Emergency Room For 16/09 questions related to your inpatient stay or results of tests pending at discharge, please contact Dr. Felipe Diana at Smoking is Dangerous to Your Health. Avoid second hand smoking Felipe Diana MD Mar 25, 2016 09:32
== END 2016-03-25 14:12 | disposition home or self-care (01) | DRG 885 ==
LOC: NEDAMB 10:44 → UNDOADMIN 12:53 → NEDA 12:53 → N04A 18:58 → UNDODISIN 03-20 11:50 → N04A 03-21 16:14 → NEDA 03-21 16:14 → H4EA 03-21 16:14
PROVIDERS: ADMIT Psychiatry & Neurology Psychiatry; ATTEND Psychiatry & Neurology Psychiatry
DX: F25.9 Schizoaffective disorder, unspecified (principal); A41.9 Sepsis, unspecified organism; E86.0 Dehydration; R56.9 Unspecified convulsions; F31.9 Bipolar disorder, unspecified; W53.11XA Bitten by rat, initial encounter; E78.5 Hyperlipidemia, unspecified; I10 Essential (primary) hypertension; N40.0 Benign prostatic hyperplasia without lower urinary tract symptoms; F22 Delusional disorders; D32.9 Benign neoplasm of meninges, unspecified
CPT/HCPCS: 70450; 71010; 80048; 80053; 80061; 80164; 80202; 80307; 80320; 81001; 82140; 83036; 83605; 83690; 84439; 84443; 85007; 85025; 85027; 85610; 85730; 87040; 87086; 87804; 88305; 88312; 93005; 96361; 96374; J0692; J0696; J1650; J3370; J7030; J7040; J7050

== ENCOUNTER 2016-03-20 16:45 | Inpatient (IN) | payer OTHER ==
[~2016-03-20 16:45] MED LIST: ASPI81CH CHEW; DIVA250T3 PO; PRAZ1CAP PO; SERT25TA83 PO
--- NOTE | 2016-03-20 17:25 | RADRPT ---
EXAM DATE/TIME: 03/20/2016 17:11 [facility] COMPARISON: CHEST SINGLE AP, March 19, 2016, 12:09. INDICATIONS : Patient has a fever since this afternoon. MEDICAL HISTORY : None. SURGICAL HISTORY : None. ENCOUNTER: Initial ACUITY: 1 day PAIN SCORE: 0/10 LOCATION: Bilateral chest FINDINGS: A single view of the chest demonstrates the lungs to be symmetrically aerated without evidence of mas s, infiltrate or effusion. The cardiomediastinal contours are unremarkable. Osseous structures are intact. CONCLUSION: No acute disease. No significant change has occurred. Osman Paul MD on March 20, 2016 at 17:23 Board Certified Radiologist. This report was verified electronically.
[2016-03-20 17:41] LABS: BACTERIA, URINE RARE /hpf; BLOOD, URINE NEG (NEG); COMMENT (UR) CULT NOT INDICATED; CULTURE IF INDICATED CULT NOT INDICATED; GLUCOSE,URINE NEG (NEG); HYALINE CAST, URINE 1 /lpf (RARE); KETONE, URINE NEG (NEG); MUCUS URINE FEW /lpf (OCC); NITRITE,URINE NEG (NEG); URINE COLOR LIGHT-YELLOW (YELLW/STRAW)
[2016-03-20 17:47] VITALS: BP 144/83; PULSE 105; RESP 16; TEMP 98.2
--- NOTE | 2016-03-20 17:49 | PD ---
HPI Chief Complaint: Psychiatric Symptoms Time Seen by Provider: 17:42 Travel History International Travel<30 days: No Contact w/Intl Traveler<30days: No Traveled to known affect area: No History of Present Illness HPI 60-year-old male that presents to the ED for evaluation of psych evaluation after being Crowell acted by police. Patient was Crowell acted at his former residence after apparently he was found hallucinating. Patient was just recently seen here on the yesterday for evaluation of "seeing vampires in his house ". He states that he has a history of bipolar disorder and during examination patient was found to have a very high white blood cell count in the 20,000. Patient was admitted for this for evaluation of psychiatric illness as well. Patient apparently signed out AMA yesterday and was apparently deemed capable of making this decision and he left today AMA. Patient and his admission was given antibiotics. Patient denies any other medical problem to me. Patient does have a wound to his right elbow which per patient states that has been there for a while. Patient does have purulence coming out of it. Patient appears to have full range of motion of the elbow itself. Patient complains of some left arm pain that has been there for almost a year and a half. Patient denies any recent injury but states that he does do football a lot. He denies any drugs or alcohol. 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 Per patient will this rat actually bit him. Per patient is not concerned for rabies as he buys them from a breader. Patient was seen for this before. Denies any signs of infection on the fingers. PFSH Past Medical History Arthritis: Yes Depression: Yes Cancer: No Cardiovascular Problems: No Cerebrovascular Accident: No Endocrine: No GERD: Yes Genitourinary: No Hiatal Hernia: No Immune Disorder: No Kidney Stones: No Musculoskeletal: Yes Neurologic: Yes Psychiatric: Yes Reproductive: No Respiratory: No Migraines: No Renal Failure: No Seizures: No Ulcer: No Past Surgical History Abdominal Surgery: Yes (HERNIA REPAIR) Cardiac Surgery: No Ear Surgery: No Endocrine Surgery: No Eye Surgery: No Genitourinary Surgery: No Gynecologic Surgery: No Oral Surgery: No Thoracic Surgery: No Other Surgery: Yes (LEFT ANKLE) Social History Alcohol Use: No Tobacco Use: No Substance Use: No Allergies-Medications (Allergen,Severity, Reaction): Coded Allergies: Penicillin (Verified Allergy, Severe, 03/19/16) SWELLING Reported Meds & Prescriptions Reported Meds & Active Scripts Active Reported Divalproex ER (Divalproex Sodium) 250 Mg Jackson Unknown Dose PO DAILY Prazosin (Prazosin HCl) 1 Mg Cap Unknown Dose PO BID Sertraline (Sertraline HCl) 25 Mg Tab Unknown Dose PO DAILY Aspirin 81 Mg Chew Unknown Dose CHEW DAILY Review of Systems Except as stated in HPI: all other systems reviewed are Neg Physical Exam Narrative GENERAL: SKIN: Warm and dry. HEAD: Atraumatic. Normocephalic. EYES: Pupils equal and round. No scleral icterus. No injection or drainage. ENT: No nasal bleeding or discharge. Mucous membranes pink and moist. Tongue is midline. No uvula deviation. NECK: Trachea midline. No JVD. CARDIOVASCULAR: Regular rate and rhythm. No murmurs, S3, S4. RESPIRATORY: No accessory muscle use. Clear to auscultation. Breath sounds equal bilaterally. GASTROINTESTINAL: Abdomen soft, non-tender, nondistended. Hepatic and splenic margins not palpable. MUSCULOSKELETAL: Extremities without clubbing, cyanosis, or edema. No obvious deformities. Full range of motion of the upper and lower extremities bilaterally with exception of the left shoulder which she cannot completely abduct secondary to pain. Patient does have what appears to be an open wound to the right elbow with possible purulence coming out of it. Tender to touch in the area but able to move it fully. 2+ pulses bilaterally. NEUROLOGICAL: Awake and alert. No obvious cranial nerve deficits. Motor grossly within normal limits. Five out of 5 muscle strength in the arms and legs. Normal speech. PSYCHIATRIC: Appropriate mood and affect; insight and judgment normal. Data Data Last Documented VS Vital Signs Date Time Temp Pulse Resp B/P Pulse Ox O2 Delivery O2 Flow Rate FiO2 03/20/16 17:47 98.2 105 16 144/83 Orders Complete Blood Count With Diff (03/20/16 17:01) Comprehensive Metabolic Panel (03/20/16 17:01) Urinalysis - C+S If Indicated (03/20/16 17:01) Alcohol (Ethanol) (03/20/16 17:01) Salicylates (Aspirin) (03/20/16 17:01) Tylenol (Acetaminophen) (03/20/16 17:01) Valproic Acid (Depakene) (03/20/16 17:01) Chest, Single Ap (03/20/16 17:01) Ct Brain W/O Iv Contrast(Rout) (03/20/16 17:01) Lactic Acid (03/20/16 17:01) Psych Screen (03/20/16 17:01) ^ Sitter (03/20/16 17:31) Diet Regular Basic (03/20/16 Dinner) Mri Brain W&W/O Contrast (03/20/16 ) Admit Order (Ed Use Only) (03/20/16 18:48) Labs Laboratory Tests Test 03/20/16 03/20/16 17:20 17:41 Urine Color LIGHT-YELLOW Urine Turbidity CLEAR Urine pH 5.0 Urine Specific [place] 1.004 Urine Protein NEG mg/dL Urine Glucose (UA) NEG mg/dL Urine Ketones NEG mg/dL Urine Occult Blood NEG Urine Nitrite NEG Urine Bilirubin NEG Urine Urobilinogen LESS THAN 2.0 MG/DL Urine Leukocyte Esterase NEG Urine WBC LESS THAN 1 /hpf Urine Bacteria RARE /hpf Urine Hyaline Casts 1 /lpf Urine Mucus FEW /lpf Microscopic Urinalysis Comment CULT NOT INDICATED White Blood Count 22.8 TH/MM3 Red Blood Count 4.08 MIL/MM3 Hemoglobin 13.9 GM/DL Hematocrit 41.2 % Mean Corpuscular Volume 101.0 FL Mean Corpuscular Hemoglobin 34.1 PG Mean Corpuscular Hemoglobin 33.8 % Concent Red Cell Distribution Width 14.2 % Platelet Count 283 TH/MM3 Mean Platelet Volume 8.6 FL Neutrophils (%) (Auto) 80.9 % Lymphocytes (%) (Auto) 6.5 % Monocytes (%) (Auto) 12.1 % Eosinophils (%) (Auto) 0.2 % Basophils (%) (Auto) 0.3 % Neutrophils # (Auto) 18.5 TH/MM3 Lymphocytes # (Auto) 1.5 TH/MM3 Monocytes # (Auto) 2.8 TH/MM3 Eosinophils # (Auto) 0.1 TH/MM3 Basophils # (Auto) 0.1 TH/MM3 CBC Comment AUTO DIFF Sodium Level 137 MEQ/L Potassium Level 3.8 MEQ/L Chloride Level 102 MEQ/L Carbon Dioxide Level 24.5 MEQ/L Anion Gap 11 MEQ/L Blood Urea Nitrogen 21 MG/DL Creatinine 1.34 MG/DL Estimat Glomerular Filtration 55 ML/MIN Rate Random Glucose 106 MG/DL Calcium Level 8.2 MG/DL Total Bilirubin 1.1 MG/DL Aspartate Amino Transf 125 U/L (AST/SGOT) Alanine Aminotransferase 125 U/L (ALT/SGPT) Alkaline Phosphatase 119 U/L Total Protein 6.7 GM/DL Albumin 2.9 GM/DL Salicylates Level LESS THAN 1.7 MG/DL Acetaminophen Level LESS THAN 2.0 MCG/ML Valproic Acid (Depakene) Level 4 MCG/ML Ethyl Alcohol Level LESS THAN 3 MG/DL MDM Medical Decision Making Medical Screen Exam Complete: Yes Emergency Medical Condition: Yes Medical Record Reviewed: Yes Interpretation(s) CBC & BMP Diagram 03/20/16 17:[address] 03/20/161700 Signed Impressions: Service Date/Time: Sunday, March 20, 2016 17:46 - CONCLUSION: Suggestion of a 1.6 cm left hemisphere high isodense rounded appearance of soft tissue density abutting the calvarium which could represent a non-calcified meningioma. This requires further evaluation with MRI of brain with and without contrast. Osman Paul MD Chest X-Ray 03/20/161700 Signed Impressions: Service Date/Time: Sunday, March 20, 2016 17:11 - CONCLUSION: No acute disease. No significant change has occurred. Osman Paul MD LFTs highly elevated, Thoughts negative. UA negative. Differential Diagnosis Sepsis versus leukocytosis versus Sirs versus dementia versus hallucinations versus bipolar disorder Narrative Course 60-year-old male that presents to the ED for evaluation of Crowell act. Patient was properly examined and was found to have signs and symptoms systems appears to be hallucinations with psychosis. Unclear etiology. Patient was seen just here yesterday and sign out AMA today and was found to have a very high white blood cell count with no known etiology. Patient has never been here before for psychiatric illness and per patient he is never any Crowell acted before. He does appear to be somewhat psychotic but seems to answer questions or properly to me. My recommendation at this time is for labs and imaging. Patient is agreeable with this. Labs and imaging showed severe leukocytosis as well as LFTs. CT of the head did show what appears to be possible mass which appears to be new from yesterday CT. Recommendations for MRI. Case was discussed in my attending Dr. Melgar who recommends admission to the residence as patient does sign out AMA today. Case discussed with the residents who agreed with admission to Dr. Mcmahon. Sepsis Criteria SIRS Criteria (2 or more): Heart rate over 90, WBC > 61335, < 4000 or > 10% bands Criteria Outcome: Meets SIRS criteria Diagnosis Primary Impression: SIRS (systemic inflammatory response syndrome) Additional Impressions: Altered mental status Qualified Code: R41.82 - Altered mental status, unspecified altered mental status type Elevated LFTs Admitting Information Admitting Physician Requests: Admit Jourdan Conklin Mar 20, 2016 17:49 Jourdan Conklin Mar 20, 2016 17:49
--- NOTE | 2016-03-20 18:00 | RADRPT ---
EXAM DATE/TIME: 03/20/2016 17:46 [facility] COMPARISON: CT BRAIN W/O CONTRAST, March 19, 2016, 14:16. INDICATIONS : Altered mental status. RADIATION DOSE: 69.15 CTDIvol (mGy) MEDICAL HISTORY : None documented. SURGICAL HISTORY : None documented. ENCOUNTER: Initial ACUITY: 2 days PAIN SCALE: 0/10 LOCATION: cranial TECHNIQUE: Multiple contiguous axial images were obtained of the head. Using automated exposure control and adj ustment of the mA and/or kV according to patient size, radiation dose was kept as low as reasonably a chievable to obtain optimal diagnostic quality images. FINDINGS: CEREBRUM: The ventricles are normal for age. No evidence of midline shift, hemorrhage or acute infarction. No extra-axial fluid collections are seen. There is a subtle suggestion on the highest left cuts axiall y of a possible 1.6 cm rounded isodense mass which could represent noncalcified meningioma. MRI of th e brain recommended with and without contrast POSTERIOR FOSSA: The cerebellum and brainstem are intact. The 4th ventricle is midline. The cerebellopontine angle i s unremarkable. EXTRACRANIAL: The visualized portion of the orbits is intact. SKULL: The calvaria is intact. No evidence of skull fracture. CONCLUSION: Suggestion of a 1.6 cm left hemisphere high isodense rounded appearance of soft tissue density abutti ng the calvarium which could represent a non-calcified meningioma. This requires further evaluation w ith MRI of brain with and without contrast. Osman Paul MD on March 20, 2016 at 17:56 Board Certified Radiologist. This report was verified electronically.
[2016-03-20 18:15] LABS: AUTOMATED NEUTROPHIL # 18.5 TH/MM3 (1.8-7.7); BASOPHIL # 0.1 TH/MM3 (0-0.2); BASOPHIL % 0.3 % (0.0-2.0); EOSINOPHIL # 0.1 TH/MM3 (0-0.4); EOSINOPHIL % 0.2 % (0.0-4.0); HEMATOCRIT 41.2 % (39.0-51.0); LYMPH % 6.5 % (9.0-44.0); LYMPHOCYTE # 1.5 TH/MM3 (1.0-4.8); MEAN CORPUSCULAR HEMOGLOBIN 34.1 PG (27.0-34.0); MEAN CORPUSCULAR HGB CONC 33.8 % (32.0-36.0); MONO % 12.1 % (0.0-8.0); NEUT % 80.9 % (16.0-70.0); PLATELET COUNT 283 TH/MM3 (150-450); RED BLOOD COUNT 4.08 MIL/MM3 (4.50-5.90); RED CELL DISTRIBUTION WIDTH 14.2 % (11.6-17.2); WHITE BLOOD COUNT 22.8 TH/MM3 (4.0-11.0)
[2016-03-20 18:38] LABS: HEMO FLAGS AUTO DIFF
[2016-03-20 18:45] LABS: ALKALINE PHOSPHATASE 119 U/L (45-117); ALT (GPT) 125 U/L (12-78); ANION GAP 11 MEQ/L (5-15); AST (GOT) 125 U/L (15-37); BICARBONATE 24.5 MEQ/L (21.0-32.0); BLOOD UREA NITROGEN 21 MG/DL (7-18); CHLORIDE 102 MEQ/L (98-107); GLOMERULAR FILTRATION RATE 55 ML/MIN (>89); POTASSIUM 3.8 MEQ/L (3.5-5.1); SODIUM (NA) 137 MEQ/L (136-145); TOTAL BILIRUBIN ADULT 1.1 MG/DL (0.2-1.0)
[2016-03-20 18:57] LABS: ACETAMINOPHEN LESS THAN 2.0 MCG/ML (10.0-30.0)
[2016-03-20 19:17] LABS: BANDS 11 % (0-6); METAMYELOCYTES 2 % (0-1); NEUTROPHIL # MANUAL DIFF 18.7 TH/MM3 (1.8-7.7); POLYS (SEG NEUTROPHILS) 69 % (16-70); SCAN/DIFF FINAL DIFF MANUAL; WBC DIFF SAMPLE 100
[2016-03-20 19:18] LABS: PLATELET ESTIMATE SMEAR NORMAL (NORMAL); PLATELET MORPHOLOGY NORMAL (NORMAL); TOXIC GRANULATION 1+ (NORMAL)
[2016-03-20] MEDS ORDERED: GADODIAMIDE PF 287 MG/ML 20 ML VIAL (for RAD MRI) IV ONE (19:35)
--- NOTE | 2016-03-20 20:00 | RADRPT ---
EXAM DATE/TIME: 03/20/2016 19:23 [facility] COMPARISON: CT BRAIN W/O CONTRAST, March 19, 2016, 14:16. CT BRAIN W/O CONTRAST, March 20, 2016, 17:46. INDICATIONS : . Homeless patient with hallucinations and abnormal CT demonstrating a mass. CONTRAST: 20 cc Omniscan (gadodiamide) IV MEDICAL HISTORY : Hypertension. SURGICAL HISTORY : Inguinal hernia repair. ENCOUNTER: Initial ACUITY: 1 day PAIN SCORE: 0/10 LOCATION: cranial TECHNIQUE: Multiplanar, multisequence MRI of the brain was performed both prior to and following the administrat ion of paramagnetic contrast. FINDINGS: CEREBRUM: The ventricles are normal for age with mild atrophic change and chronic small vessel ischemic change. No evidence of midline shift, hemorrhage or acute infarction. No extraaxial fluid collections are s een. The pituitary gland and suprasellar cistern are normal in configuration. An extra axial mass is again identified along the medial left parietal lobe. The mass demonstrates fairly homogeneous enhan cement and adjacent enhancement of a dural tail. WHITE MATTER: No significant signal abnormalities are seen in the white matter. POSTERIOR FOSSA: The cerebellum and brainstem are intact. The 4th ventricle is midline. The cerebellopontine angle is unremarkable. The cerebellar tonsils are normal in position. DIFFUSION IMAGING: No focal areas of restricted diffusion are seen. No evidence of acute infarction. EXTRACRANIAL: The visualized portions of the orbits and paranasal sinuses are unremarkable. POST-CONTRAST: No abnormal areas of parenchymal or dural enhancement. No evidence of blood-brain barrier breakdown. CONCLUSION: 1. Enhancing extra-axial mass characteristic of a meningioma. 2. There is no significant mass effect and no edema. 3. No evidence of hemorrhage or infarction. Aamir Randle MD on March 20, 2016 at 19:53 Board Certified Radiologist. This report was verified electronically.
--- NOTE | 2016-03-20 20:28 | HHI.HP ---
[facility] Service Family Medicine Primary Care Physician [facility] Admission Diagnosis SIRS, leukocytosis, psychotic, BA Diagnoses: International Travel<30 Days: No Contact w/Intl Traveler<30days: No Known Affected Area: No History of Present Illness Patient is a 60-year-old male with past medical history significant for hypertension, bipolar disorder, BPH who left [facility] earlier this afternoon, currently admitted under the Crowell Act. Patient was admitted due to sepsis, delirium, syncope. He is unable to explain why he left AMA. After leaving the hospital he was found experiencing hallucinations and responding to external stimuli. Patient was brought to the ED by police. Patient was also noted to have an open wound on his right elbow that was not previously documented. He is unable to account for how this injury occurred or how long it has been present. Patient is unable to answer questions directly and provides no additional relevant history. Review of Systems ROS Limitations: Altered Mental Status Constitutional: DENIES: Fever Eyes: DENIES: Vision loss Respiratory: DENIES: Shortness of breath Cardiovascular: DENIES: Chest pain Gastrointestinal: DENIES: Abdominal pain Musculoskeletal: COMPLAINS OF: Joint pain, Muscle aches, Back pain Integumentary: DENIES: Rash Hematologic/lymphatic: DENIES: Bruising Neurologic: DENIES: Abnormal gait Psychiatric: COMPLAINS OF: Delusions Past Family Social History Past Medical History Histroy per EMR review from prior admission: Osteoarthritis HTN HLD Depression Bipolar BPH Past Surgical History left ankle x2 with hardware removed hernia repair on left possible surgery from branch going into chest cavity??? Reported Medications Pt unable to clarify medications and dosages, sertraline and divalproex currently held Allergies: Coded Allergies: Penicillin (Verified Allergy, Severe, 03/19/16) SWELLING Active Ordered Medications Inpatient Medications Cefepime HCl/ Sodium Chloride (Maxipime Inj/NS Inj) 100 ml @ 200 mls/hr Q12H IV Last administered on 03/20/16 22:47; Start 03/20/16 at 22:00 Haloperidol (Haldol) 1 mg Q8H PRN PO AGITATION; Start 03/20/16 at 20:30 Heparin Sodium (Porcine) 5000 units 5,000 units Q8H SQ Last administered on 22:38; Start 03/20/16 at 22:00 IV Flush (NS Flush) 2 ml BID IVF Last administered on 03/20/16 21:38; Start at 21:00 Vancomycin HCl 1500 mg/Sodium Chloride 515 ml @ 257.5 mls/ hr Q12H IV Last administered on 03/20/16 22:46; Start 03/20/16 at 23:00 Family History Mother: dementia Father: of lung cancer? Social History Lives by himself Alcohol: 3-4 12oz beers on the weekends. Will get the shakes when not drinking. No history of seizure Tobacco: 1 cigar periodically Illicit: marijuana a long time ago. None recently. Otherwise denies illicit drug use Physical Exam Vital Signs Vital Signs Date Time Temp Pulse Resp B/P Pulse Ox O2 Delivery O2 Flow Rate FiO2 03/20/16 17:47 98.2 105 16 144/83 Physical Exam GENERAL: This is a well nourished, well-developed patient, in no apparent distress, disheveled, is older than stated age. SKIN: Pt with 2cm open would on right elbow with minimal drainage, muscle tissue /tendon visible. Skin cool and dry. HEAD: Atraumatic. Normocephalic. No temporal or scalp tenderness. EYES: Pupils equal round and reactive. Extraocular motions intact. No scleral icterus. No injection or drainage. ENT: Nose without bleeding, purulent drainage or septal hematoma. Throat without erythema, tonsillar hypertrophy or exudate. Uvula midline. Airway patent. NECK: Trachea midline. No JVD or lymphadenopathy. Supple, nontender, no meningeal signs. CARDIOVASCULAR: Regular rate and rhythm without murmurs, gallops, or rubs. RESPIRATORY: Clear to auscultation. Breath sounds equal bilaterally. No wheezes , rales, or rhonchi. GASTROINTESTINAL: Abdomen soft, non-tender, nondistended. No hepato-splenomegaly , or palpable masses. No guarding. MUSCULOSKELETAL: Extremities without clubbing, cyanosis, or edema. Pt reports bilateral chronic knee pain, No joint tenderness, effusion, or edema noted. No calf tenderness. Negative Homans sign bilaterally. Full range of motion of upper extremities. NEUROLOGICAL: Awake and alert. Oriented to person place and time. Cranial nerves II through XII intact. Psych: Pt unable to answer questions directly with tangential speech. Appropriate affect. Poor insight, unable to evaluate judgement. Laboratory Laboratory Tests Test 03/20/16 03/20/16 03/20/16 17:20 17:41 18:45 Urine Color LIGHT-YELLOW Urine Turbidity CLEAR Urine pH 5.0 Urine Specific Stevens 1.004 Urine Protein NEG Urine Glucose (UA) NEG Urine Ketones NEG Urine Occult Blood NEG Urine Nitrite NEG Urine Bilirubin NEG Urine Urobilinogen LESS THAN 2.0 Urine Leukocyte Esterase NEG Urine WBC LESS THAN 1 Urine Bacteria RARE Urine Hyaline Casts 1 Urine Mucus FEW Microscopic Urinalysis Comment CULT NOT INDICATED White Blood Count 22.8 Red Blood Count 4.08 Hemoglobin 13.9 Hematocrit 41.2 Mean Corpuscular Volume 101.0 Mean Corpuscular Hemoglobin 34.1 Mean Corpuscular Hemoglobin 33.8 Concent Red Cell Distribution Width 14.2 Platelet Count 283 Mean Platelet Volume 8.6 Neutrophils (%) (Auto) 80.9 Lymphocytes (%) (Auto) 6.5 Monocytes (%) (Auto) 12.1 Eosinophils (%) (Auto) 0.2 Basophils (%) (Auto) 0.3 Neutrophils # (Auto) 18.5 Lymphocytes # (Auto) 1.5 Monocytes # (Auto) 2.8 Eosinophils # (Auto) 0.1 Basophils # (Auto) 0.1 CBC Comment AUTO DIFF Differential Total Cells 100 Counted Neutrophils % (Manual) 69 Band Neutrophils % 11 Lymphocytes % 6 Monocytes % 12 Neutrophils # (Manual) 18.7 Metamyelocytes 2 Differential Comment FINAL DIFF MANUAL Toxic Granulation 1+ Platelet Estimate NORMAL Platelet Morphology Comment NORMAL Sodium Level 137 Potassium Level 3.8 Chloride Level 102 Carbon Dioxide Level 24.5 Anion Gap 11 Blood Urea Nitrogen 21 Creatinine 1.34 Estimat Glomerular Filtration 55 Rate Random Glucose 106 Calcium Level 8.2 Total Bilirubin 1.1 Aspartate Amino Transf 125 (AST/SGOT) Alanine Aminotransferase 125 (ALT/SGPT) Alkaline Phosphatase 119 Total Protein 6.7 Albumin 2.9 Salicylates Level LESS THAN 1.7 Acetaminophen Level LESS THAN 2.0 Valproic Acid (Depakene) Level 4 Ethyl Alcohol Level LESS THAN 3 Lactic Acid Level 1.0 Result Diagram: 03/20/16 1741 03/20/16 1741 Imaging Last [address] 03/20/16 1701 Signed Impressions: Service Date/Time: Sunday, March 20, 2016 17:46 - CONCLUSION: Suggestion of a 1.6 cm left hemisphere high isodense rounded appearance of soft tissue density abutting the calvarium which could represent a non-calcified meningioma. This requires further evaluation with MRI of brain with and without contrast. Osman Paul MD Chest X-Ray 03/20/16 1701 Signed Impressions: Service Date/Time: Sunday, March 20, 2016 17:11 - CONCLUSION: No acute disease. No significant change has occurred. Osman Paul MD Septic Shock Reassessment Heart: Regular rate and rhythm Lungs: Clear Skin: Warm Assessment and Plan Assessment and Plan Patient is a 60-year-old male with past medical history significant for hypertension, bipolar disorder, BPH currently admitted due to SIRS, altered mental status, Head CT significant for 1.6cm meningioma that was not present on prior CT from 03/19/16. Code Status Full Discussed Condition With sdw Dr. Ino Mcmahon Problem List: (1) Altered mental status Status: Acute Plan: Patient with altered mental status of unclear etiology. Pt appears to be having new onset behavioral changes evident by inability to answer questions directly, tangential speech. 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 There is no significant mass effect and no edema. No evidence of hemorrhage or infarction. -Meningioma was not seen on Head CT from 03/19/15 -Neurology has been consulted, appreciate recommendations -Neurosurgery has also been consulted due to location of meningioma and recent behavioral changes -UDS positive for cocaine, avoid use of beta blockers -Blood alcohol level within normal limits -TSH from 03/19 2.07 -RPR, HIV, B12, thiamine pending -Blood cultures pending -Neuro checks Q4hrs (2) SIRS (systemic inflammatory response syndrome) Status: Resolved Plan: Pt currently meets SIRS criteria due to elevated heart rate and leukocytosis. Patient presents with wound on right elbow that was not previously documented, unlikely that this is infection source due to SIRS prior to this injury. No other apparent source of infection at this time. -Patient with significant leukocytosis white blood cell count elevated to 22.8 with left shift -Lungs clear on exam, CXR with no acute disease -UA with no culture indicated -Lactic acid 1.0 -Vancomycin 1,500mg IV Q12, to be titrated by pharmacy (03/20- ) -Cefepime 2 g IV Q12 (03/20- ) -Tylenol prn fever -See fluids below (3) Bipolar 1 disorder Status: Chronic Plan: Pt with reported history of Bipolar disorder, unable to verify home medications/doseages. -Psychiatry consulted, appreciate recommendations -Pt currently admitted under Crowell act -1:1 sitter (4) Elevated LFTs Status: Acute Plan: On admission patient with elevated LFTs. -Hepatitis panel pending (5) Wound, open, elbow Status: Acute Plan: Patient with open wound present on right elbow with no significant drainage. Muscle/tendon fibers present at wound opening. This is likely a new injury that patient sustained after leaving the hospital, possibly due to self inflicted injury. -Wound culture obtained -Nonocclusive dressing to be applied to prevent further injury -Continue to monitor for signs of infection (6) HTN (hypertension) Status: Acute Plan: Vasotec prn continue to monitor Avoid beta marleny use due to UDS being positive for cocaine (7) BPH (benign prostatic hypertrophy) Status: Acute Plan: Prazosin 1 mg po BID (8) FEN/PPX Status: Acute Plan: Fluids: NS 100ml/hr Electrolytes: WNL, continue to monitor Nutrition: Regular diet DVT prophylaxis: Heparin 5000 units Q8hrs Physician Certification 2 Midnight Certification Type: Admission for Inpatient Services Order for Inpatient Services The services are ordered in accordance with Medicare regulations or non- Medicare payer requirements, as applicable. In the case of services not specified as inpatient-only, they are appropriately provided as inpatient services in accordance with the 2-midnight benchmark. Estimated LOS (days): 2 2 days is the estimated time the patient will need to remain in the hospital, assuming treatment plan goals are met and no additional complications. Post-Hospital Plan: Not yet determined Problem Qualifiers (1) Altered mental status: Qualified Code: R41.82 - Altered mental status, unspecified altered mental status type Julia Clayton MD R2 Mar 20, 2016 20:28
[2016-03-20] MEDS ORDERED: SODIUM CHLORIDE 0.9% FLUSH 5 ML FLUSH IVF PRN (20:30)
[2016-03-20] MEDS ORDERED: HALOPERIDOL 1 MG TAB PO PRN (20:30)
[2016-03-20 21:12] LABS: AMPHETAMINE, URINE NEG (NEG); BARBITURATES, URINE NEG (NEG); COCAINE, URINE POS (NEG)
[2016-03-20] MEDS: SODIUM CHLORIDE 0.9% FLUSH 5 ML FLUSH IVF SCH (21:38)
[2016-03-20 22:24] LABS: INDIRECT BILIRUBIN 0.8 MG/DL (0.0-0.8); MAGNESIUM 2.4 MG/DL (1.5-2.5); TOTAL BILIRUBIN ADULT 1.2 MG/DL (0.2-1.0)
[2016-03-20] MEDS: HEPARIN SODIUM - SQ 10,000 UNITS/ML VIAL SQ SCH (22:38)
[2016-03-20] MEDS: VANCOMYCIN INJ 1,500 MG in SODIUM CHLORID 0.9% 500 ML INJ 500 ML IV SCH (22:46)
[2016-03-20] MEDS: CEFEPIME INJ 2,000 MG in SODIUM CHLORIDE 0.9% INJ 100 ML IV SCH (22:47)
[2016-03-20] MEDS ORDERED: DOCUSATE SODIUM 50 MG/SENNA 8.6 MG TAB PO PRN (23:15)
[2016-03-20] MEDS ORDERED: ONDANSETRON HCL 4 MG/2 ML VIAL IV PRN (23:15)
[2016-03-20] MEDS ORDERED: ACETAMINOPHEN 325 MG TAB PO PRN (23:15)
[2016-03-20] MEDS ORDERED: ACETAMINOPHEN/HYDROcodone 325 MG/5 MG TAB PO PRN (23:15)
[2016-03-20] MEDS ORDERED: ENALAPRILAT 1.25 MG/ML VIAL IV PUSH PRN (23:15)
[2016-03-20 23:44] VITALS: BP 132/77; PULSE 79; RESP 16; O2SAT 98
[2016-03-21] MEDS ORDERED: Vancomycin Consult Pharmacy 1 EA OTHER SCH
[2016-03-21] MEDS: SODIUM CHLOR 0.9% 1000 ML INJ 1,000 ML IV SCH ×3 (01:01→19:45)
[2016-03-21 04:00] VITALS: BP 124/72; PULSE 69; RESP 16; O2SAT 99
[2016-03-21 04:22] LABS: AUTOMATED NEUTROPHIL # 11.9 TH/MM3 (1.8-7.7); BASOPHIL # 0.1 TH/MM3 (0-0.2); BASOPHIL % 0.3 % (0.0-2.0); EOSINOPHIL # 0.2 TH/MM3 (0-0.4); EOSINOPHIL % 0.9 % (0.0-4.0); LYMPH % 13.5 % (9.0-44.0); LYMPHOCYTE # 2.2 TH/MM3 (1.0-4.8); MEAN CELL VOLUME 98.7 FL (80.0-100.0); MEAN CORPUSCULAR HEMOGLOBIN 33.5 PG (27.0-34.0); MEAN CORPUSCULAR HGB CONC 33.9 % (32.0-36.0); MONO % 13.7 % (0.0-8.0); NEUT % 71.6 % (16.0-70.0); PLATELET COUNT 276 TH/MM3 (150-450); RED BLOOD COUNT 3.65 MIL/MM3 (4.50-5.90); RED CELL DISTRIBUTION WIDTH 14.6 % (11.6-17.2); WHITE BLOOD COUNT 16.6 TH/MM3 (4.0-11.0)
[2016-03-21 04:29] LABS: HEMO FLAGS AUTO DIFF
[2016-03-21 05:21] LABS: SCAN/DIFF AUTO DIFF CONFIRMED
[2016-03-21] MEDS: HEPARIN SODIUM - SQ 10,000 UNITS/ML VIAL SQ SCH ×3 (06:10→21:31)
[2016-03-21 07:42] VITALS: BP 138/75; PULSE 76; RESP 20; O2SAT 96
[2016-03-21] MEDS: PRAZOSIN HCL 1 MG CAP PO SCH ×2 (10:15→20:26)
[2016-03-21] MEDS: SODIUM CHLORIDE 0.9% FLUSH 5 ML FLUSH IVF SCH ×2 (10:16→21:00)
[2016-03-21] MEDS: CEFEPIME INJ 2,000 MG in SODIUM CHLORIDE 0.9% INJ 100 ML IV SCH ×2 (11:03→21:32)
[2016-03-21 11:06] VITALS: BP 134/78; PULSE 78; RESP 16; O2SAT 99
[2016-03-21] MEDS ORDERED: LORazepam 2 MG/ML VIAL IV PUSH PRN (11:30)
[2016-03-21] MEDS: VANCOMYCIN INJ 1,500 MG in SODIUM CHLORID 0.9% 500 ML INJ 500 ML IV SCH ×2 (12:03→23:12)
--- NOTE | 2016-03-21 12:57 | MB ---
cc: HUMBLE ROBINS DATE OF CONSULTATION: 03/21/2016 REASON FOR CONSULTATION Mental status change. HISTORY OF PRESENT ILLNESS Mr. Leon is a 60-year-old man who has a history of hypertension, bipolar disorder, who was previously seen in the ER, was diagnosed with sepsis and delirium and syncope but left AMA. After leaving the hospital he was found to be expressing hallucinations and was found by the police and brought back to the emergency room under Crowell Act. In the hospital he was very confused and disoriented. He denies any headaches. PAST MEDICAL HISTORY 1. He has history of hypertension. 2. Hyperlipidemia. 3. Bipolar disorder. 4. BPH. 5. Left ankle surgery. 6. Hernia repair. 7. He states he has arthritis of the left shoulder. ALLERGIES PENICILLIN. MEDICATIONS 1. Cefepime. 2. Haldol p.r.n. 3. Heparin 5000 units subcu q.8 hours. SOCIAL HISTORY Lives by himself. He drinks alcohol on weekends. No history of seizures. He smokes cigars. No other drug abuse except marijuana years ago. NEUROLOGIC EXAMINATION VITAL SIGNS: Blood pressure 134/78, pulse is 78, respirations 16, temperature 98 degrees. Higher cortical function at this time, he is alert, oriented x3. Recalls 1/3 objects in 3 minutes. His remote memory is normal for president recall, speech is fluent with no errors. He has no hallucinations at the present time. Cranial nerves intact. Motor exam, he has no focal deficits. Reflexes are symmetric. IMAGING STUDIES Chest x-ray is normal. CT scan of the brain shows a 1.6 cm left hemisphere isodense soft tissue density abutting the calvarium, possibly meningioma. MRI of the brain shows enhancing extra-axial mass left parietal area consistent with a meningioma. LABORATORY DATA His white count is 16,600, hemoglobin 12.2, hematocrit 36% platelets 276,000, sodium is 137, potassium 3.8, chloride 102, CO2 24.5, BUN is 21, creatinine 1.34, GFR is 55, glucose 106, AST 125, ALT is 125, alk phos 119, B12 1420, ammonia level 14. Tox screen positive for cocaine. Valproic acid level 4. Alcohol less than 3. Urinalysis the pH is 5, specific gravity 1.004, less than 1 WBC identified. RPR nonreactive. Hepatitis panel negative. HIV-1 and 2 negative. IMPRESSION Acute mental status change which appears to have resolved at the present time, rule out encephalopathy possibly from cocaine use or possible sepsis, if he had sepsis. Also rule out focal seizure. He does have a meningioma left hemisphere as well which could be a source of focal seizure causing mental status change. RECOMMENDATIONS Recommend EEG and also start him on Keppra for the possibility of focal seizures from the meningioma. Will also recommend neurosurgical evaluation for the meningioma. MD CHITRA Rodriguez/TAHIR /11:23 AM /12:38 PM
--- NOTE | 2016-03-21 12:58 | PD.CONS ---
Provisional Diagnosis Admission Date Mar 20, 2016 at 18:50 [place] I. schizoaffective disorder, bipolar type [place] II. Deferred [place] III. Meningioma [place] IV. Poor family and social support [place] V. 40 History of Present Illness Service Psychiatry Consult Requested By Primary Care Physician [facility] HPI The patient is a 60-year-old man, domiciled alone in [place], [facility], with a self-reported psychiatric history of bipolar disorder , no psychiatric hospitalizations, no previous suicide attempts, receiving outpatient psychiatric care in [place], he isn't Depakote 250 mg twice a day, and Zoloft 25 mg, past medical history significant for hypertension, bipolar disorder, BPH who left [facility] yesterday, currently admitted under the Crowell Act due to erratic behavior. "Patient was admitted due to sepsis, delirium, syncope. He is unable to explain why he left AMA. After leaving the hospital he was found experiencing hallucinations and responding to external stimuli. Patient was brought to the ED by police. Patient was also noted to have an open wound on his right elbow that was not previously documented. He is unable to account for how this injury occurred or how long it has been present. Patient is unable to answer questions directly and provides no additional relevant history." Patient was seen for psychiatric evaluation in the ER, patient explains that the reason he is in the hospital is because a rat bit him. He explains that he has been feeding his snakes at home and when he was giving a rat to the snakes one of the rats bit him. He also complains that there are several vampires hanging out of his house "in a need to protect myself, if they come close to my house I will shoot them", patient refuses to answer it he has a gun at home. He says that he has been seen vampires around him, "sometime inside my house, they couldn't even be here"for a long time now. Patient also reports auditory hallucination, voices telling him to fight against the vampires. He reports good mood, denies depressive symptoms, he denies anxiety. Patient is tangential and disorganized, but redirectable, he is oriented 3, he does not seem to be confused or delirium. No pressure speech, flight of ideas, are noted during this evaluation. Patient denies the use of illicit drugs, he also denies the use of alcohol. Patient explains that he has been "a psychiatric patient for a long time"and he sees a psychiatrist in [place], however he seems to have a hard time answering if he has been hospitalized and what medication his taking. Review of Systems Constitutional: DENIES: Diaphoretic episodes, Fatigue, Fever, Weight gain, Weight loss, Chills, Dizziness, Change in appetite, Night Sweats Endocrine: DENIES: Heat/cold intolerance, Polydipsia, Polyuria, Polyphagia Eyes: DENIES: Blurred vision, Diplopia, Eye inflammation, Eye pain, Vision loss , Photosensitivity, Double Vision Ears, nose, mouth, throat: DENIES: Tinnitus, Hearing loss, Vertigo, Nasal discharge, Oral lesions, Throat pain, Hoarseness, Ear Pain, Running Nose, Epistaxis, Sinus Pain, Toothache, Odynophagia Respiratory: DENIES: Apneas, Cough, Snoring, Wheezing, Hemoptysis, Sputum production, Shortness of breath Cardiovascular: DENIES: Chest pain, Palpitations, Syncope, Dyspnea on Exertion , PND, Lower Extremity Edema, Orthopnea, Claudication Gastrointestinal: DENIES: Abdominal pain, Black stools, Bloody stools, Constipation, Diarrhea, Nausea, Vomiting, Difficulty Swallowing, Anorexia Musculoskeletal: DENIES: Joint pain, Muscle aches, Stiffness, Joint Swelling, Back pain, Neck pain Integumentary: DENIES: Abnormal pigmentation, Nail changes, Pruritus, Rash Hematologic/lymphatic: DENIES: Bruising, Lymphadenopathy Immunologic/allergic: DENIES: Eczema, Urticaria Neurologic: DENIES: Abnormal gait, Headache, Localized weakness, Paresthesias, Seizures, Speech Problems, Tremor, Poor Balance Psychiatric: COMPLAINS OF: Hallucinations, Delusions, DENIES: Anxiety, Confusion, Mood changes, Depression, Agitation, Suicidal Ideation, Homicidal Ideation Past Family Social History Coded Allergies: Penicillin (Verified Allergy, Severe, 03/19/16) SWELLING Reported Medications Divalproex ER 250 Mg TaberUnknown Dose PO DAILY #30 TAB Ref 0 03/19/16 Prazosin 1 Mg CapUnknown Dose PO BID #60 CAP Ref 0 03/19/16 Sertraline 25 Mg TabUnknown Dose PO DAILY #30 TAB Ref 0 03/19/16 Aspirin 81 Mg ChewUnknown Dose CHEW DAILY Ref 0 03/19/16 Current Medications Medications (Trade) Dose Ordered Sig/Cyndi Route Start Time Stop Time Status Last Admin (NS Flush) 2 ml UNSCH PRN IVF 03/20/16 20:30 (NS Flush) 2 ml BID IVF 03/20/16 21:00 03/21/16 10:16 (Haldol) 1 mg Q8H PRN PO 03/20/16 20:30 Heparin Sodium (Porcine) 5000 units 5,000 units Q8H SQ 03/20/16 22:00 03/21/16 06:10 Vancomycin HCl 1500 mg/Sodium Chloride 515 ml @ 257.5 mls/ hr Q12H IV 03/20/16 23:00 03/21/16 12:03 (Maxipime Inj/NS Inj) 100 ml @ 200 mls/hr Q12H IV 03/20/16 22:00 03/21/16 11:03 (Tylenol) 650 mg Q4H PRN PO 03/20/16 23:15 (Zofran Inj) 4 mg Q6H PRN IV 03/20/16 23:15 (Ashlie-Colace) 1 tab BID PRN PO 03/20/16 23:15 ([place] 5-325 Mg) 1 tab Q4H PRN PO 03/20/16 23:15 (Vasotec Inj) 1.25 mg Q6HR PRN IV PUSH 03/20/16 23:15 Prazosin HCl 1 mg 1 mg Q12HR PO 03/21/16 09:00 03/21/16 10:15 Sodium Chloride 1,000 ml @ 100 mls/hr Q10H IV 03/20/16 23:45 03/21/16 10:15 (Vancomycin Consult Pharmacy) 0 ml @ 0 mls/hr UNSCH OTHER 03/21/16 00:00 Miscellaneous Information SPECIFIC LAB TO BE ... ONCE ONCE XX 03/22/16 10:45 03/22/16 10:46 (Keppra) 500 mg Q12HR PO 03/21/16 12:00 (Ativan Inj) 1 mg Q4H PRN IV PUSH 03/21/16 11:30 (risperDAL) 1 mg Q12HR PO 03/21/16 21:00 UNV Family History He denies Social History Patient was born and raised in [place], he has been living in [place] for 3 years, he lives alone in [place], his eyeballs, he has 3 kids, he is a , he is 100% service connected, his highest level of education is an associate degree. Physical Exam Vital Signs Vital Signs Date Time Temp Pulse Resp B/P Pulse Ox O2 Delivery O2 Flow Rate FiO2 03/21/16 11:06 78 16 134/78 99 Room Air 03/20/16 17:47 98.2 Mental Status Examination Appearance woman, who looks older than his stated age, malodorous, long ivan, disheveled, superficially cooperative, calm Speech: Hesitant Orientation: x3 Memory: Unremarkable Thought Process: Tangential Thought Content: Bizarre thinking, Paranoid Hallucination Type: Auditory (he hears voices of vampiares ), Visual Attention and Concentration: Good Suicidal Ideation: No Homicidal Ideation: No Previous Homicide Attempts: No Judgement: Poor Affect: Irritable Mood: Irritable Motor Activity: Normal gait Assessment & Plan Problem List: (1) Chronic schizoaffective disorder with acute exacerbation Assessment & Plan: On psychiatric evaluation patient presents evidence psychosis consistent the delusions of being followed by vampires, visual and auditory hallucinations, paranoia, tangential and disorganized. Patient denies depressive symptoms, he denies anxiety, no manic symptoms are observed or reported at this moment. He denies suicidal or homicidal ideation. Patient is fully oriented in 3, no deficit in attention, fluctuation of consciousness, delirium or gross cognitive impairment observed at this moment. Agree with neurology and neurosurgical consult in order to evaluate meningioma seen in Brain CT. At this point is unclear if the cause of current psychosis is primary psychiatric vs medical vs neurological. But, patient will benefit of psychiatric hospitalization for stabilization and safety. Collateral information from psychiatrist in [facility] [address] is crucial in order to get patient baseline and complete psychiatric assessment. We'll start Risperdal 1 mg twice a day, and we will restart Depakote 250 mg twice a day. ICD Code: F25.8 Assessment & Plan Estimated LOS: Felipe Benítez MD Mar 21, 2016 12:58
[2016-03-21 13:24] VITALS: BP 120/73; PULSE 73; RESP 20; O2SAT 97
[2016-03-21] MEDS: levETIRAcetam 500 MG TAB PO SCH ×2 (13:25→21:31)
--- NOTE | 2016-03-21 15:10 | HHI.FPPN ---
Subjective Remarks Delayed Documentation, patient seen in the AM No acute events overnight. VS unremarkable. This morning patient continues to endorse the delusion of seeing vampires. He denies any chest pain, SOB, abdominal pain. Only reports left shoulder pain that has been present for the last few months. When asked why he left AMA yesterday, he does not give a clear answer Objective Vitals Vital Signs Date Time Temp Pulse Resp B/P Pulse Ox O2 Delivery O2 Flow Rate FiO2 03/21/16 13:24 73 20 120/73 97 Room Air 03/21/16 11:06 78 16 134/78 99 Room Air 03/21/16 07:42 76 20 138/75 96 Room Air 03/21/16 04:00 69 16 124/72 99 Room Air 03/20/16 23:44 79 16 132/77 98 Room Air 03/20/16 17:47 98.2 105 16 144/83 Result Diagram: 03/21/16 0340 03/20/16 1741 Imaging Last Impressions Head CT 03/20/16 1701 Signed Impressions: Service Date/Time: Sunday, March 20, 2016 17:46 - CONCLUSION: Suggestion of a 1.6 cm left hemisphere high isodense rounded appearance of soft tissue density abutting the calvarium which could represent a non-calcified meningioma. This requires further evaluation with MRI of brain with and without contrast. Osman Paul MD Chest X-Ray 03/20/16 1701 Signed Impressions: Service Date/Time: Sunday, March 20, 2016 17:11 - CONCLUSION: No acute disease. No significant change has occurred. Osman Paul MD Brain MRI 03/20/16 0000 Signed Impressions: Service Date/Time: Sunday, March 20, 2016 19:23 - CONCLUSION: 1. Enhancing extra-axial mass characteristic of a meningioma. 2. There is no significant mass effect and no edema. 3. No evidence of hemorrhage or infarction. Aamir Randle MD Objective Remarks GEN: Well-developed, well-nourished patient. No acute distress. SKIN: superficial wound on right upper arm (this was not noted on original admission but I do remember seeing this lesion). Unchanged and with granulation tissue present. CV: Regular rate and rhythm without obvious murmurs LUNGS: Clear to auscultation bilaterally. Normal respiratory effort. No wheezes , rales, rhonchi. EXT: No edema. No calf tenderness. NEURO/PSYCH: Awake, alert. Endorses hallucinations of vampires. Normal speech A/P Assessment and Plan Patient is a 60-year-old male with past medical history significant for hypertension, bipolar disorder, BPH currently admitted due to SIRS, altered mental status, Head CT significant for 1.6cm meningioma that was not present on prior CT from 03/19/16. Discharge Planning Timeline unknown, pending psychiatric status and management of meningioma dw Dr. Mcmahon Problem List: (1) Altered mental status Status: Acute Plan: Patient with altered mental status of unclear etiology. Mental status complicated as patient already has underlying mental illness of bipolar and is now associated with delusions and visual/auditory hallucinations. Now found to have a new meningioma. -UDS positive for cocaine -RPR, HIV negative -B12 elevated -Thiamine pending Neurology consulted: * Recommended EEG * Started on Keppra * Recommended neurosurgical evaluation Psychiatry consulted: Appreciate recommendations * Unclear the cause of current psychosis his primary psychiatric versus medical versus neurological * Patient will benefit from psychiatric hospitalization for stabilization and safety * Started Risperdal 1 mg BID, restart Depakote 250 mg BID Imaging: * Head CT significant for 1.6 cm left hemisphere high isodense, rounded appearance of soft tissue density abutting the calvarium, possibly service center representative of noncalcified meningioma * Brain MRI confirms enhancing extraaxial masses characteristic of a meningioma. There is no significant mass effect and no edema. No evidence of hemorrhage or infarction. -Haldol for agitation (2) SIRS (systemic inflammatory response syndrome) Status: Resolved Plan: Patient meets SIRS criteria based on pulse and leukocytosis. History obtained from patient is difficult as he is a poor historian and endorses hallucinations. I believe there is an underlying mental condition that may have been exacerbated by SIRS. -Leukocytosis improving -Chest x-ray unremarkable -UA negative -UDS positive for cocaine Medications: * Vancomycin (03/20- ) * Cefepime 2 g IV Q12 (03/20- ) (3) Meningioma Status: Acute Plan: See plan under AMS (4) Bipolar 1 disorder Status: Chronic Plan: Pt with reported history of Bipolar disorder, unable to verify home medications/doseages. See plan under AMS (5) Elevated LFTs Status: Acute Plan: On admission patient with elevated LFTs. -Hepatitis panel negative -Coagulation profile in the morning (6) FEN/PPX Status: Acute Plan: Fluids: NS 100ml/hr Electrolytes: WNL, continue to monitor Nutrition: Regular diet DVT prophylaxis: Heparin 5000 units Q8hrs Chronic conditions: * BPH: Prazosin 1 mg BID * HTN: avoid BB due to alcohol use. Vasotec PRN Problem Qualifiers (1) Altered mental status: Qualified Code: R41.82 - Altered mental status, unspecified altered mental status type Skylar Carter MD R2 Mar 21, 2016 15:10 Skylar Carter MD R2 Mar 21, 2016 15:10
--- NOTE | 2016-03-21 16:32 | HHI.FPPN ---
Subjective Remarks Attending note: Patient seen and examined. Patient was returned to hospital ER Crowell-acted after leaving AMA on 03/20/16. At the time of discharge the patient was being evaluated for leukocytosis early on associated with low grade fever. 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 Please refer to resident H and P for complete PNHx, Fam Hx, Social hx. Objective Vitals Vital Signs Date Time Temp Pulse Resp B/P Pulse Ox O2 Delivery O2 Flow Rate FiO2 03/21/16 13:24 73 20 120/73 97 Room Air 03/21/16 11:06 78 16 134/78 99 Room Air 03/21/16 07:42 76 20 138/75 96 Room Air 03/21/16 04:00 69 16 124/72 99 Room Air 03/20/16 23:44 79 16 132/77 98 Room Air 03/20/16 17:47 98.2 105 16 144/83 Result Diagram: 03/21/16 0340 03/20/16 1741 Objective Remarks GEN: Well-developed, well-nourished patient. No acute distress. Very oriented x 3 SkIN: Right distal arm/elbow, wound with exuberant granualation tissue. ? etilogy. CV: Regular rate and rhythm without obvious murmurs LUNGS: Clear to auscultation bilaterally. GI: Soft, nontender, nondistended. No palpable masses. EXT: No edema. No calf tenderness. NEURO/PSYCH: Awake, alert. Appropriate insight and judgment. Normal speech MUSCULOSKELETAL: guarding of movement left shoulder CT and MRI of bran reviewed. A/P Assessment and Plan Clinical Assessment: Patient readmitted with continued hallucinations to point of being Crowell acted. Continued leukocytosis, right arm wound, abnormal neuroimaging with 1.6 cm brain neoplasm (possible meningioma in parietal area left. Patient seen and examined. Case reviewed and discussed with resident team. Care plan reviewed with physician and physician in agreement with plan of care as outlined in resident note. Problem List: (1) Altered mental status Status: Acute Plan: Patient with altered mental status of unclear etiology. Pt appears to be having new onset behavioral changes evident by inability to answer questions directly, tangential speech. -Head CT significant for 1.6 cm left hemisphere high isodense, rounded appearance of soft tissue density abutting the calvarium, possibly senior customer service representative of noncalcified meningioma -Brain MRI confirms enhancing extraaxial masses characteristic of a meningioma. There is no significant mass effect and no edema. No evidence of hemorrhage or infarction. -Meningioma was not seen on Head CT from 03/19/15 -Neurology has been consulted, appreciate recommendations -Neurosurgery has also been consulted due to location of meningioma and recent behavioral changes -UDS positive for cocaine, avoid use of beta blockers -Blood alcohol level within normal limits -TSH from 03/19 2.07 -RPR, HIV, B12, thiamine pending -Blood cultures pending -Neuro checks Q4hrs (2) SIRS (systemic inflammatory response syndrome) Status: Resolved Plan: Pt currently meets SIRS criteria due to elevated heart rate and leukocytosis. Patient presents with wound on right elbow that was not previously documented, unlikely that this is infection source due to SIRS prior to this injury. No other apparent source of infection at this time. -Patient with significant leukocytosis white blood cell count elevated to 22.8 with left shift -Lungs clear on exam, CXR with no acute disease -UA with no culture indicated -Lactic acid 1.0 -Vancomycin 1,500mg IV Q12, to be titrated by pharmacy (03/20- ) -Cefepime 2 g IV Q12 (03/20- ) -Tylenol prn fever -See fluids below (3) Bipolar 1 disorder Status: Chronic Plan: Pt with reported history of Bipolar disorder, unable to verify home medications/doseages. -Psychiatry consulted, appreciate recommendations -Pt currently admitted under Crowell act -1:1 sitter (4) Elevated LFTs Status: Acute Plan: On admission patient with elevated LFTs. -Hepatitis panel pending (5) Wound, open, elbow Status: Acute Plan: Patient with open wound present on right elbow with no significant drainage. Muscle/tendon fibers present at wound opening. This is likely a new injury that patient sustained after leaving the hospital, possibly due to self inflicted injury. -Wound culture obtained -Nonocclusive dressing to be applied to prevent further injury -Continue to monitor for signs of infection (6) HTN (hypertension) Status: Acute Plan: Vasotec prn continue to monitor Avoid beta marleny use due to UDS being positive for cocaine (7) BPH (benign prostatic hypertrophy) Status: Acute Plan: Prazosin 1 mg po BID (8) FEN/PPX Status: Acute Plan: Fluids: NS 100ml/hr Electrolytes: WNL, continue to monitor Nutrition: Regular diet DVT prophylaxis: Heparin 5000 units Q8hrs Problem Qualifiers (1) Altered mental status: Qualified Code: R41.82 - Altered mental status, unspecified altered mental status type Hubert Mcmahon MD Mar 21, 2016 16:32
[2016-03-21] MEDS ORDERED: risperiDONE 1 MG TAB PO SCH (21:00)
[2016-03-22] MEDS: HEPARIN SODIUM - SQ 10,000 UNITS/ML VIAL SQ SCH (05:28)
[2016-03-22] MEDS: SODIUM CHLOR 0.9% 1000 ML INJ 1,000 ML IV SCH (05:29)
--- NOTE | 2016-03-22 06:47 | MB ---
cc: [facility], LISETTE MCDANIELS M.D. DATE OF CONSULTATION 03/21/2016 REASON FOR CONSULTATION Left frontal meningioma. HISTORY OF PRESENT ILLNESS This is a 60-year-old gentleman who presented to the emergency room on 03/20/2015 Mervat acted for a psych evaluation after he was hallucinating and "seeing vampires in his house." He does have a history of bipolar disorder and also apparently was recently admitted for sepsis and schizoaffective disorder. Workup including a CT scan of the head, as well as subsequent MRI scan of the brain which reveals a 1.6 cm left parafalcine posterior frontal lobe dural-based mass consistent with a meningioma. This was also seen on the CT scan on the prior admission, but not picked up by the radiologist. Currently, the patient appears to be more lucid and denies any headaches, nausea or vomiting, numbness or paresthesias. He complains of right elbow and left shoulder pain. He has been Crowell acted and undergoing psychiatric evaluation. Neurology has also been consulted for possible seizures and mental status changes. PAST MEDICAL HISTORY 1. Bipolar disorder, schizoaffective disorder 2. Hypertension 3. Hyperlipidemia 4. Left ankle surgery 5. Hernia surgery 6. Left shoulder arthritis 7. Benign prostatic hypertrophy ALLERGIES PENICILLIN MEDICATIONS PRIOR TO ADMISSION 1. Aspirin 2. Divalproex 3. Prazosin 4. Sertraline SOCIAL HISTORY He is . We is a . Does admit to smoking and drinking. LABORATORY FINDINGS White blood cell count 16.6, hemoglobin 12.2, platelet count 276. Sodium 137, potassium 3.8, BUN 21, creatinine 1.34, glucose 106. Toxicology screen was positive for cocaine. EXAMINATION VITAL SIGNS: Temperature 98.2, pulse is 73, respiratory 20, blood pressure 120/73, oxygen saturation 97% on room air. HEAD: Normocephalic, atraumatic. NECK: Supple. CHEST: Clear bilaterally. HEART: Regular rate rhythm, normal S1 and S2. ABDOMEN: Soft and nontender. EXTREMITIES: No cyanosis or edema. He does have tenderness in the left shoulder with limited range of motion and pain with movement, as well as right elbow tenderness. NEUROLOGIC: He is awake and alert. He knows he is in the hospital, but does not remember the exact name of the hospital. He knows the month and the year. He states his name. Pupils are equal and reactive. Extraocular muscles are intact. Face is symmetric. Tongue is midline. He moves all four extremities, although limited left shoulder movement from pain. Negative Babinski. Speech is fluent. IMPRESSION A small left posterior frontal lobe parafalcine dural-based mass consistent with a meningioma. There is no surrounding edema and this likely is an incidental finding. On occasion, meningiomas can trigger seizures and certainly this is a possibility, but the management of this will be deferred to the neurology service. PLAN The patient does not require any neurosurgical intervention at the current time. I would recommend serial imaging of the brain on a yearly basis to ensure that this meningioma does not grow and if it does grow or become more symptomatic, than follow up with neurosurgery at the [facility] can be undertaken. This was discussed with the patient who understands and is in agreement. MD ROMEO Reyes/ROZINA /5:49 PM /6:35 AM
--- NOTE | 2016-03-22 06:54 | MG ---
cc: DIANA GREENBERG M.D. Lab No: [id number]____ Date: 03/21/2016 Age: 60 Sex: M Race: __ REFERRING PHYSICIAN Dr. Del Valle INDICATIONS An EEG was obtained on this 60-year-old patient with a history of apparent meningioma and hallucinations. MEDICATIONS 1. Prazosin 2. Vancomycin DESCRIPTION The patient is awake and asleep, constantly twitching the feet, jerking, hallucinating and body jerks throughout. This EEG shows initially a lot of artifact. As the artifact subsides, there is some underlying activity of possible epileptiform significance. This may be artifactual, but there are repeated small sharp spikes with associated slow wave activity, sometimes appearing in polysharp, polyspike manner and this is overall more on the left than the right. There are some theta, beta and alpha rhythms. Some of the rhythms are obviously artifactual, but at times there is the appearance that these predominantly left hemisphere discharges are often epileptiform significance. The patient is awake and drowsy. There are some theta and rare delta rhythms. Photic stimulation showed no significant change. INTERPRETATION This EEG is challenging and showing some suspiciously epileptiform, possible ictal left hemisphere discharge. There is artifact, but some of the nearly rhythmic discharges appears to be paroxysmal. Would recommend a trial with anticonvulsant medication and follow-up EEG's. MD JOSE Hunter/DJL /7:54 PM /6:46 AM
[2016-03-22] MEDS ORDERED: PHARMACY ORDERED LAB XX ONE (10:45)
== END 2016-03-21 15:44 | disposition left against medical advice (07) | DRG 872 ==
LOC: NEDAMB 16:45 → NEDA 18:50 → NEDH 23:24
PROVIDERS: ADMIT Family Medicine; ATTEND Family Medicine
DX: R65.10 Systemic inflammatory response syndrome (SIRS) of non-infectious origin without acute organ dysfunction (principal); I10 Essential (primary) hypertension; N40.0 Benign prostatic hyperplasia without lower urinary tract symptoms; F31.9 Bipolar disorder, unspecified; S51.009A Unspecified open wound of unspecified elbow, initial encounter; X58.XXXA Exposure to other specified factors, initial encounter; R79.89 Other specified abnormal findings of blood chemistry; M19.90 Unspecified osteoarthritis, unspecified site; K21.9 Gastro-esophageal reflux disease without esophagitis; F25.9 Schizoaffective disorder, unspecified; F17.290 Nicotine dependence, other tobacco product, uncomplicated; M25.512 Pain in left shoulder; D32.0 Benign neoplasm of cerebral meninges
CPT/HCPCS: 70450; 70553; 71010; 80053; 80074; 80076; 80164; 80307; 80320; 80329; 81001; 82140; 82607; 83605; 83735; 84100; 84425; 85007; 85025; 85027; 86592; 86703; 87040; 95819; A9579; G0480; J0692; J1644; J3370; J7030; J7040